=== PATIENT | female | born 1950 | race Caucasian/White ===

== ENCOUNTER → 2024-01-02 10:09 | Outpatient (REF) | payer MEDICARE, SELFPAY | LOC: DHCBC MAIN 10:09 | PROVIDERS: ATTENDING PHYSICIAN Internal Medicine Cardiovascular Disease; FAMILY PHYSICIAN Internal Medicine | DX: I35.0 Nonrheumatic aortic (valve) stenosis (principal) | CPT/HCPCS: 93306 ==

== ENCOUNTER 2024-01-18 10:45 | Day surgery (SDC) | payer MEDICARE, SELFPAY ==
[2024-01-18] VITALS (13 sets, daily range): BP systolic 71–138; BP diastolic 34–95; BMI 22.8
[2024-01-18] MEDS: NSS 170 ML IV (11:22)
[2024-01-18] MEDS: LOW STRENGTH ASPIRIN 81 MG PO (11:30)
--- NOTE | 2024-01-18 14:02 | ITS.CL.CATH ---
Glass Vial Filler - Catheterization
Cardiac Catheterization
Procedure Report:
CARDIAC CATHETERIZATION REPORT
Date of Procedure: 01/18/2024
Referring: Doris Ross M.D.
Indication: Severe aortic valve stenosis.
PROCEDURE:
1. Right heart catheterization.
2. Left heart catheterization.
3. Coronary angiography.
ACCESS:
6 [place] right radial artery.
5 [place] right antecubital vein.
CATHETERS:
1. 5 [place] balloon wedge.
2. 5 [place] JL 3.5.
3. 5 [place] JR4.
HEMODYNAMIC DATA
Weight (kg): 56.6
AO (s/d/x mmHg): 140/71/99
LV (s/x mmHg): Not obtained.
PCWP (a/v/x mmHg): 24/
PA (s/d/x mmHg): 46//29
RV (s/x mmHg): 46/12
RA (a/v/x mmHg): 18/16/13
SVC SvO2 (%): 79.8
PA SvO2 (%): 77.5
SaO2 (%): 93.5
Hbg (g/dL): 12.8
CO (L/min): 6.22
CI (L/min/m2): 3.98
TPG (mmHg): 9
PVR ([place] Units): 1.45
SVR (dynes*seconds*cm^-5): 1106
AVO2 Diff (Volume %): 2.79
AV gradient (x, mmHg): Not obtained.
AV area (cm2): Not obtained.
LEFT VENTRICULOGRAPHY: Not performed.
CORONARY ANGIOGRAPHY
Dominance: Right.
Left Main: Normal size, bifurcating vessel. There is no coronary artery disease.
LAD: Normal size vessel giving rise to 1 significant diagonal. There is no coronary artery disease.
Ramus: Congenitally absent.
Circumflex: Normal size vessel that is essentially a single obtuse marginal supplying the majority of the lateral wall. There is no coronary artery disease.
RCA: Large size, dominant vessel with an anterior takeoff and a significant posterolateral arcade. There is at least moderate tortuosity. There is no coronary artery disease
INTERVENTIONS
None.
Closure Device: Vascular band for the right radial artery, manual pressure for the right antecubital vein.
Radiation dose (mGy): 117.79
DAP (cm2.Gy): 7.9700
Fluoroscopy time (minutes): 3.6
Sedation time (minutes): 14
CONCLUSIONS:
1. Right dominant circulation with moderate tortuosity in the right coronary system but no coronary artery disease. The RCA has a high, anterior takeoff.
2. Moderately elevated filling pressures (PCWP = 20 mmHg at 56.6 kg).
3. Severe aortic valve stenosis by echocardiography.
4. Mild postcapillary pulmonary hypertension, WHO group 2.
RECOMMENDATIONS:
1. Expectant management after cardiac catheterization via right radial and antecubital approach.
2. Limited weight bearing on the right wrist for one week.
3. Initiate TAVR workup.
Copy to: Doris Ross M.D., YOHANA Rebollar
[place] Amaya, , FACC, FACP
[2024-01-18] MEDS: NSS 1000 IV (14:28)
--- NOTE | 2024-01-18 14:58 | CONSULT.STRU ---
Consultation
-
Date/Time Consultation Requested: 01/18/2024
Date/Time Consultation Performed: 01/18/2024
Requesting Provider: Gnei Keller
Performing Provider: YOHANA Davis
Reason for Consultation: /TAVR
Patient History
Physicians
Family Physician: YOHANA Bravo
Outpatient Picked Edge Sewing Machine Operator: Doris Ross MD
Primary Picked Edge Sewing Machine Operator: Doris Ross MD
History of Present Illness
Ms. Quintana is a very pleasant 73 yof that presents with severe symptomatic aortic stenosis associated with SOLER. She states she has noticed her SOLER while vacuuming progressively worse over the last several months. 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 Her echocardiogram from 01/02/2024 is notable for: EF 55-60%, AV P/M 94/57, MART 0.5, DI 0.2, mild AI, mild MR, trace TR, PAP 25. Discussed the pathophysiology and treatment options of including
SAVR and TAVR. Explained the evaluation process comprising of CT scan, CT surgical consult, dental clearance, and a heart team discussion. Prescriptions and appointments given to patient and son. Allowed for and answered questions at bedside.
Past Medical History
Past Medical History: Hypercholesterolemia, Valvular Disease (aortic stenosis) and Other (hyperlipidemia, osteoporosis, kidney stones, migraines, depression, anxiety)
Past Surgical History
Past Surgical History: Tonsilectomy and Other (lithotripsy, bilateral tubal ligation)
Dental History
[facility] dentistry. [facility] will fax dental clearance form
Family History
Mother: Cause of (cancer, CAD)
Father: Cause of (CAD)
Family Medical History: CAD and Diabetes
Social History
Alcohol: Occasional
Drug: None
Tobacco: Former Smoker
Living: Alone
Employment: Employed
Allergies
Allergy/AdvReac Type Severity Reaction Status Date / Time
Sulfa (Sulfonamide Allergy Rash Verified 12/24/22 08:12
Antibiotics)
Home Medications
�Medication �Instructions �Recorded �Confirmed �Type
aspirin 81 mg tablet,delayed 81 mg PO DAILY 03/07/10 12/24/22 History
release
multivitamin 1 ea PO DAILY 03/07/10 01/18/24 History
simvastatin 20 mg tablet 20 mg PO QPM 03/07/10 01/18/24 History
rizatriptan 5 mg tablet 5 mg PO DAILY 08/26/16 01/18/24 History
Azo 1 tab PO DAILY PRN urinary symptoms 12/24/22 01/18/24 History
Chanca Kimberly 1,600 mg PO DAILY 12/24/22 01/18/24 History
Vitamin D3 1 tab PO DAILY 12/24/22 01/18/24 History
d-mannose 500 mg capsule 1,300 mg PO DAILY 12/24/22 01/18/24 History
omeprazole 20 mg capsule,delayed 20 mg PO DAILY 12/24/22 01/18/24 History
release
pseudoephedrine-ibuprofen 30 1 tab PO QID PRN cold 12/24/22 01/18/24 History
mg-200 mg tablet (Advil Cold and
Sinus)
vitamin B12 0.5 mg-folic acid 1 mg 1 tab PO DAILY 12/24/22 01/18/24 History
tablet
acetaminophen 325 mg tablet 325 mg PO DAILY PRN pain 01/18/24 01/18/24 History
(Tylenol)
albuterol sulfate 90 mcg/actuation 1 puff inhalation ONCE 01/18/24 01/18/24 History
aerosol inhaler
fluticasone propionate 115 2 puff inhalation Q12H 01/18/24 01/18/24 History
mcg-salmeterol 21 mcg/actuation
HFA inhaler (Advair HFA)
STS%
STS %: 3.24
Review of Systems
-
History Source: Patient
General: Reports No Symptoms
HEENT: Reports No Symptoms
Respiratory: Reports SOLER
Cardiac: Reports No Symptoms
Abdomen/GI: Reports No Symptoms
: Reports No Symptoms
Musculoskeletal: Reports No Symptoms
Skin: Reports No Symptoms
Neurological: Reports No Symptoms
Vascular: Reports No Symptoms
Physical Exam
Vital Signs
Temp 98.0 F 01/18/24 12:15
Temp route: Oral 01/18/24 12:15
Pulse 76 01/18/24 14:15
Resp Rate 19 01/18/24 14:15
Blood pressure 123/70 01/18/24 14:14
Blood pressure extremity used: Right upper arm 01/18/24 11:13
Position: Lying 01/18/24 11:13
MAP (cuff-Brittany Monitor) 80 01/18/24 14:14
SaO2 97 01/18/24 14:18
Can the patient verbally communicate their pain? Yes 01/18/24 14:18
Actual Weight 56.6 kg 01/18/24 11:12
Body Mass Index (BMI) 22.8 01/18/24 11:12
Labs
01/10/2024
HH: 12.7/39.4
Plt: 198K
Bun/Cr: 20/0.68
GFR>60
Diagnostic Studies
Clinical Summary
Planned Surgery: Isolated AVR, Elective, First cardiovascular surgery
Demographics: 73 year old, White, female, 57kg, 155cm, BMI: 23.7 kg/m�
Insurance/Payor: Medicare
Lab Values: Creatinine: 0.68 mg/dL, Hematocrit: 39.4%, WBC Count: 12.2 10�/�L, Platelet Count: 904618 cells/�L
Substance Abuse: Former smoker
Risk Factors / Comorbidities: Family Hx of CAD
Cardiac Status: Chronic heart failure, NYHA Class II, Ejection Fraction = 55%
Coronary Artery Disease: No coronary symptoms
Valve Disease: Aortic Stenosis, Mild AR, Trivial/Trace MR, Trivial/Trace TR
Echocardiogram 01/02/2024:
CONCLUSIONS
Normal left ventricular size and systolic function.
LV ejection fraction is 55-60% .
Severe aortic stenosis.
Mild aortic regurgitation.
Aortic Valve
Thickened aortic valve with restricted leaflet motion. Severe aortic stenosis.
Apical views peak gradient 94 mean gradient 57 mmHg. Using patient off the
peak gradient across the valve is 122 mmHg with a mean of 72 mmHg. Using a LVOT
diameter of 2.0 cm, the MART is 0.5 cm sq. dimensionless index is 0.2. mild
aortic regurgitation.
Cardiac Catheterization 01/18/2024
CONCLUSIONS:
1. Right dominant circulation with moderate tortuosity in the right coronary system but no coronary artery disease. The RCA has a high, anterior takeoff.
2. Moderately elevated filling pressures (PCWP = 20 mmHg at 56.6 kg).
3. Severe aortic valve stenosis by echocardiography.
4. Mild postcapillary pulmonary hypertension, WHO group 2.
RECOMMENDATIONS:
1. Expectant management after cardiac catheterization via right radial and antecubital approach.
2. Limited weight bearing on the right wrist for one week.
3. Initiate TAVR workup.
Exam
General: Well Developed, Well Nourished, No Apparent Distress and Comfortable
HEENT: Normocephalic and Moist Mucous Membranes
Neck: Trachea Midline
Respiratory: Clear
Cardiac: Regular Rhythm and Murmur (IV/ RUIZ)
GI: Soft, Non Tender and Non Distended
Rectal: Deferred by Provider
Skin: Warm and Dry
Neuro: Awake, Alert and Oriented
Psych: Calm
Assessment / Plan
-
Aortic Stenosis
Continue TAVR evaluation
Trend creatinine after contrast (Rx given--[facility])
TAVR CT scan (01/30)
CT surgical consult (TT 01/29)
Frailty testing and KCCQ12 at consult
continue aspirin
Heart team discussion
Data Reviewed
-
Program Management Specialist: Report Reviewed by me and Discussed with Physician
Echo: Report Reviewed by me and Discussed with Physician
Labs: Labs Reviewed by me
Old Records: Reviewed (Dr. Ross's OV)
Total Time Spent with Patient (in minutes): 45
[2024-01-18] MEDS: TYLENOL 650 MG PO (15:10)
== END 2024-01-18 17:13 | disposition home or self-care (01) ==
LOC: CATH 10:45
PROVIDERS: ATTENDING PHYSICIAN Internal Medicine Cardiovascular Disease; FAMILY PHYSICIAN Internal Medicine; OTHER PHYSICIAN Internal Medicine Cardiovascular Disease
DX: I35.0 Nonrheumatic aortic (valve) stenosis (principal); I27.22 Pulmonary hypertension due to left heart disease; E78.00 Pure hypercholesterolemia, unspecified; E78.5 Hyperlipidemia, unspecified; Z87.891 Personal history of nicotine dependence
CPT/HCPCS: 93451; 93456; C1769; C1894; Q9967

== ENCOUNTER → 2024-01-25 09:54 | Outpatient (REF) | payer MEDICARE, SELFPAY ==
[2024-01-25 10:50] LABS: Blood Urea Nitrogen 22 mg/dl (7-17); Calcium 9.8 mg/dl (8.4-10.2); Carbon Dioxide 30 mmol/L (22-30); Chloride 103 mmol/L (98-107); Glucose 102 mg/dl (70-99); Potassium 4.8 mmol/L (3.5-5.1); Sodium 140 mmol/L (135-145); eGFR > 60.00
== END ==
LOC: RAD 09:54
PROVIDERS: ATTENDING PHYSICIAN Nurse Practitioner Acute Care; FAMILY PHYSICIAN Internal Medicine
DX: I35.0 Nonrheumatic aortic (valve) stenosis (principal)
CPT/HCPCS: 36415; 74174; 75572; 80048; Q9967

== ENCOUNTER 2024-02-28 04:54 | Inpatient (IN) | payer MEDICARE, SELFPAY ==
[2024-02-21 08:55] VITALS: BMI 24.4
[2024-02-21 09:59] LABS: APTT 25.4 Sec (23.4-35.0); INR 0.98; PT 12.8 Sec (11.4-14.6)
[2024-02-21 10:00] LABS: % Basophils 0.4 % (0-2); % Eosinophils 1.4 % (0-6); % Immature Granulocytes 0.3 % (0-0.5); % Lymphocytes 59.8 % (20.5-51.1); % Monocytes 6.3 % (1.7-9.3); % Neutrophils 31.8 % (42.2-75.2); Absolute Basophils 0.1 10^3/uL (0-0.2); Absolute Eosinophils 0.2 10^3/uL (0-0.7); Absolute Lymphocytes 8.5 10^3/uL (1.2-3.4); Absolute Monocytes 0.9 10^3/uL (0.1-0.6); Absolute Neutrophils 4.5 10^3/uL (1.4-6.5); Hematocrit 42.9 % (37.0-47.0); Hemoglobin 13.9 g/dL (12.0-16.0); Mean Corp Hgb Conc. 32.4 g/dL (33.0-37.0); Mean Corpuscular Volume 89.6 fL (81.0-99.0); Mean Platelet Volume 10.7 fL (7.4-10.4); Nucleated Red Blood Cells % 0 %; Platelet Count 194 10^3/uL (130-400); Red Blood Cell Count 4.79 10^6/uL (4.20-5.40); Red Cell Dist. Width 12.8 % (11.5-14.5); White Blood Cell Count 14.2 10^3/uL (4.8-10.8)
[2024-02-21 10:13] LABS: ALT (SGPT) 30 U/L (0-35); AST (SGOT) 36 U/L (14-36); Albumin 5.2 g/dl (3.5-5.0); Alkaline Phosphatase 96 U/L (38-126); Blood Urea Nitrogen 23 mg/dl (7-17); Calcium 9.9 mg/dl (8.4-10.2); Carbon Dioxide 29 mmol/L (22-30); Chloride 101 mmol/L (98-107); Direct Bilirubin 0.3 mg/dl (0.0-0.4); Estimated Creatinine Clearance 64 ml/min; Glucose 100 mg/dl (70-99); Potassium 4.8 mmol/L (3.5-5.1); Sodium 139 mmol/L (135-145); Total Bilirubin 1.1 mg/dl (0.2-1.3); eGFR > 60.00
[2024-02-21 10:15] LABS: Urine Albumin Negative (Neg - Trace); Urine Bilirubin Negative (Negative); Urine Character Clear (Clear); Urine Color Yellow; Urine Glucose Negative (Negative); Urine Ketone Negative (Negative); Urine Leukocyte Negative (Negative); Urine Nitrite Negative (Negative); Urine Occult Blood Trace (Negative); Urine Specific Gravity 1.005 (<1.030); Urine Urobilinogen Negative (Neg - 1+)
[2024-02-21 10:23] LABS: Urine Squamous Cell 0-2 /LPF (Few)
[2024-02-21 10:24] LABS: Urine Bacteria Few (Negative); Urine Red Blood Cell 0-2 /HPF (0-2); Urine White Cell 0-2 /HPF (0-5)
--- NOTE | 2024-02-21 11:44 | CM ---
spoke to pt in PAT's, we discussed preop AVR teaching including driving and lifting restrictions. she is prev indep, lives alone in an apt on one floor no steps to enter. she denies any dme's. she still works 32 hrs a week at [employer]. she has the
cardiac educ book soap and instructions. she is agreeable to a f/u visit from the [facility] care nurse after dc. her son is nearby and can stay with her for a night or two after dc. cmrole explained and all questions answered. plan is for AVR
02/27, cm to follow.
[2024-02-21 11:54] LABS: Glycohemoglobin (HgbA1c) 6.2 % (4.0-5.6)
[2024-02-28] VITALS (16 sets, daily range): BP systolic 73–118; BP diastolic 40–69; BMI 24.0
[2024-02-28] MEDS: PROTONIX 40 MG PO (05:19)
[2024-02-28] MEDS: MAGNESIUM OXIDE 500 MG PO (05:19)
[2024-02-28] MEDS: LOPRESSOR 25 MG PO (05:19)
[2024-02-28] MEDS: BACTROBAN 2% OINTMENT 1 APPLIC NASAL ×2 (05:22→21:15)
[2024-02-28] MEDS: TRANSDERM-SCOP 1 PATCH TRANSDERM (06:28)
--- NOTE | 2024-02-28 06:28 | W.CVOR.SURPR ---
CVOR Surgeon Immed Pre Op
-
I have examined this patient prior to performance of the scheduled procedure.
The patient's condition is unchanged from the time of the dictated/written History and
Physical and the patient is able to undergo the scheduled procedure.
SAVR +/- Root enlargement
[2024-02-28 07:19] LABS: ACT+ - POC 107 Seconds (82-134)
[2024-02-28 07:23] LABS: B.E. - POC 0.6 mmol/L; Glucose - POC 125 mg/dl (65-99); HCO3 - POC 26 mmol/L (21-29); Hematocrit - POC 37 % PCV (37-47); Hemodilution- POC No; Hemoglobin Calculated - POC 12.7; Ionized Calcium - POC 1.25 mmol/L (1.12-1.27); O2 Saturation %Calculated-POC 99.9 5 (92-96); PCO2 - POC 46 mmHg (35-45); PO2 - POC 295 mmHg (80-100); POC Comment PRE; Potassium - POC 4.1 mmol/L (3.6-5.0); Sodium - POC 142 mmol/L (135-145); pH - POC 7.36 (7.35-7.45)
[2024-02-28 07:27] LABS: Urine Albumin Negative (Neg - Trace); Urine Bilirubin Negative (Negative); Urine Character Clear (Clear); Urine Color Yellow; Urine Glucose Negative (Negative); Urine Ketone Negative (Negative); Urine Leukocyte Negative (Negative); Urine Nitrite Negative (Negative); Urine Occult Blood Negative (Negative); Urine Urobilinogen Negative (Neg - 1+)
[2024-02-28 08:17] LABS: ACT+ - POC 572 Seconds (82-134)
[2024-02-28 08:50] LABS: B.E. - POC 6.4 mmol/L; Glucose - POC 164 mg/dl (65-99); HCO3 - POC 29 mmol/L (21-29); Hematocrit - POC 26 % PCV (37-47); Hemodilution- POC Yes; Hemoglobin Calculated - POC 8.7; Ionized Calcium - POC 0.91 mmol/L (1.12-1.27); PCO2 - POC 31 mmHg (35-45); PO2 - POC 488 mmHg (80-100); POC Comment CPB; Potassium - POC 5.2 mmol/L (3.6-5.0); Sodium - POC 140 mmol/L (135-145); pH - POC 7.58 (7.35-7.45)
[2024-02-28 08:52] LABS: ACT+ - POC 540 Seconds (82-134)
--- NOTE | 2024-02-28 09:03 | CM ---
Reviewed chart. Mrs. Quintana is in the operating room today. Prior to admission she resides alone in an apartment without any steps to enter. She has a first floor set-up. Prior to admission she was independent with ambulation and adls. She
does not have any DME in the home. She still works outside the home. Her son maybe able to stay with her one to two night when she goes home. Medical work-up in progress. The discharge plan is to return home with her son support and a home visit
by the Cardiothoracic Transitional Care Nurse when medically stable.
[2024-02-28 09:27] LABS: B.E. - POC 3.7 mmol/L; Glucose - POC 240 mg/dl (65-99); HCO3 - POC 27 mmol/L (21-29); Hematocrit - POC 30 % PCV (37-47); Hemodilution- POC Yes; Hemoglobin Calculated - POC 10.2; Ionized Calcium - POC 1.04 mmol/L (1.12-1.27); O2 Saturation %Calculated-POC 99.8 5 (92-96); PCO2 - POC 37 mmHg (35-45); PO2 - POC 200 mmHg (80-100); POC Comment CPB; Sodium - POC 142 mmol/L (135-145); pH - POC 7.48 (7.35-7.45)
[2024-02-28 09:29] LABS: ACT+ - POC 489 Seconds (82-134)
[2024-02-28 09:59] LABS: ACT+ - POC 487 Seconds (82-134)
[2024-02-28 10:01] LABS: B.E. - POC 1.2 mmol/L; Glucose - POC 171 mg/dl (65-99); HCO3 - POC 26 mmol/L (21-29); Hematocrit - POC 30 % PCV (37-47); Hemodilution- POC Yes; Hemoglobin Calculated - POC 10.2; Ionized Calcium - POC 1.12 mmol/L (1.12-1.27); O2 Saturation %Calculated-POC 99.6 5 (92-96); PCO2 - POC 39 mmHg (35-45); PO2 - POC 181 mmHg (80-100); POC Comment WARM; Potassium - POC 3.7 mmol/L (3.6-5.0); Sodium - POC 146 mmol/L (135-145); pH - POC 7.43 (7.35-7.45)
[2024-02-28] MEDS: ANCEF 10 IV ×2 (10:30)
[2024-02-28 10:44] LABS: ACT+ - POC 115 Seconds (82-134)
[2024-02-28 10:50] LABS: B.E. - POC -2.1 mmol/L; Glucose - POC 83 mg/dl (65-99); HCO3 - POC 24 mmol/L (21-29); Hematocrit - POC 30 % PCV (37-47); Hemodilution- POC Yes; Hemoglobin Calculated - POC 10.3; Ionized Calcium - POC 1.58 mmol/L (1.12-1.27); PCO2 - POC 45 mmHg (35-45); PO2 - POC 552 mmHg (80-100); POC Comment POST; Potassium - POC 3.2 mmol/L (3.6-5.0); Sodium - POC 150 mmol/L (135-145); pH - POC 7.34 (7.35-7.45)
[2024-02-28 11:09] LABS: B.E. - POC -3.1 mmol/L; Glucose - POC 81 mg/dl (65-99); HCO3 - POC 24 mmol/L (21-29); Hematocrit - POC 30 % PCV (37-47); Hemodilution- POC Yes; Hemoglobin Calculated - POC 10.3; Ionized Calcium - POC 1.45 mmol/L (1.12-1.27); PCO2 - POC 49 mmHg (35-45); PO2 - POC 508 mmHg (80-100); POC Comment POST; Potassium - POC 3.1 mmol/L (3.6-5.0); Sodium - POC 149 mmol/L (135-145); pH - POC 7.29 (7.35-7.45)
--- NOTE | 2024-02-28 11:15 | CON.INTV ---
Consultation
Consultation Request
Date/Time Consultation Requested: 02-28-24
Date/Time Consultation Performed: 02-28-24
Requesting Provider: Dr Goetz
Performing Provider: Dr Thompson
Reason for Consultation: s/p AV surgery MV
Medical History
-
Chief Complaint: s/p AV surgery, MV
History of Present Illness:
Mrs Rashida Quintana is a 73/W adm 02-27 for plan surgery for .
Seen at office by Dr Goetz for progressive with MART 0.5 cm2 and worsening functional status. [facility] showed no significant CAD
Seen at [facility], s/p surgical AV replacement with Ao root enlargement and aortoplasty using a bovine pericardial patch [23 mm bioprosthesis]. [facility], sedated, comfortable
Past Medical History
Past Medical History: Other (see A&P for PMH/PSH)
Social History
Tobacco: Former Smoker
Alcohol: Occasional
Personal:
Living: Alone
Employment: Employed
Family History
Family History: CAD (F: ), Cancer (M: CLL) and Diabetes (M: )
Allergies / Home Medications
Allergies
Allergy/AdvReac Type Severity Reaction Status Date / Time
Sulfa (Sulfonamide Allergy Rash Verified 02/20/24 13:00
Antibiotics)
Home Medications
�Medication �Instructions �Recorded �Confirmed �Last Taken �Type
aspirin 81 mg tablet,delayed 81 mg PO QPM 03/07/10 02/28/24 02/27/24 12:00 History
release
multivitamin 1 ea PO QPM 03/07/10 02/28/24 02/20/24 History
simvastatin 20 mg tablet 20 mg PO QPM 03/07/10 02/28/24 02/20/24 08:00 History
rizatriptan 5 mg tablet 5 mg PO PRN PRN MIGRAINES 08/26/16 02/28/24 02/20/24 History
Chanca Kimberly 1,600 mg PO QPM 12/24/22 02/28/24 01/28/24 History
d-mannose 500 mg capsule 1,300 mg PO QPM 12/24/22 02/28/24 01/28/24 History
pseudoephedrine-ibuprofen 30 1 tab PO QID PRN cold 12/24/22 02/28/24 01/11/24 08:00 History
mg-200 mg tablet (Advil Cold and
Sinus)
vitamin B12 0.5 mg-folic acid 1 mg 1 tab PO QPM 12/24/22 02/28/24 02/20/24 08:00 History
tablet
acetaminophen 325 mg tablet 325 mg PO DAILY PRN pain 01/18/24 02/28/24 02/27/24 05:00 History
(Tylenol)
albuterol sulfate 90 mcg/actuation 1 puff inhalation PRN PRN SOB 01/18/24 02/28/24 02/27/24 12:00 History
aerosol inhaler
fluticasone propionate 115 2 puff inhalation Q12H 01/18/24 02/28/24 01/28/24 History
mcg-salmeterol 21 mcg/actuation
HFA inhaler (Advair HFA)
cholecalciferol (vitamin D3) 25 25 mcg PO QPM 02/20/24 02/28/24 02/20/24 History
mcg (1,000 unit) tablet (Vitamin
D3)
escitalopram oxalate 10 mg tablet 15 mg PO DAILY 02/20/24 02/28/24 02/27/24 08:00 History
(Lexapro)
famotidine 40 mg tablet (Pepcid) 40 mg PO QPM 02/20/24 02/28/24 02/27/24 12:00 History
lorazepam 0.5 mg tablet 0.5 mg PO DAILY PRN SLEEP/ANXIETY 02/20/24 02/28/24 09/29/23 08:00 History
mecobalamin (vitamin B12) 1,000 500 mcg PO QPM 02/20/24 02/28/24 02/20/24 History
mcg chewable tablet (B12 Active)
pumpkin seed extract-soy germ 300 1 cap PO PRN PRN URINARY SYMPTOMS 02/20/24 02/28/24 01/28/24 History
mg capsule (Azo Bladder Control)
Review of Systems
-
Unable to Obtain full review of systems at this time due to: Patient Intubation
Vitals / Labs / Diagnostic Testing
Diagnostic Testing:
Physical Exam
-
HEENT: Normocephalic, Moist Mucous Membranes and Other (RADHA)
Cardiovascular: Regular Rhythm and Peripheral Edema (n)
Respiratory: Clear, Non-Labored Respirations and Other (chest and mediastinal tubes)
GI: Soft and Non Distended
Neurology: Other (sedated)
Skin: Warm
General: Respiratory Distress (n)
Assessment
-
Assessment:
Mrs Rashida Quintana is a 73/W adm 02-27 for plan surgery for . Seen at office by Dr Goetz for progressive with MART 0.5 cm2 and worsening functional status. [facility] showed no significant CAD
Impression:
Severe
S/p surgical AV replacement with Ao root enlargement and aortoplasty using a bovine pericardial patch [23 mm bioprosthesis]
Conditions POLYSOMNOGRAPHIC TECH:
([facility] with no CAD January 2024)
HLD
OP
Vit D deficiency
OA
Nephrolithiasis, s/p lithotripsy x3 in 2004, utereroscopy stone extraction Aug 2016
Migraine
LBP
Depression, anxiety, panic disorder
L foot bone spur, plantar fasciitis,
Tonsillectomy
Bilateral tubal ligation
Former smoker
Plan:
Ventilator settings reviewed:
SIMV: [id number] (POx 97%)
FiO2 will be weaned
Minute ventilation will be adjusted
Arterial blood gases will be monitored
Postop portable CXR: no infiltrates or free air. ETT. RIJ SGC. Sternotomy wiring. Chest/med tubes
Spontaneous breathing trial will be attempted with hopeful extubation after anesthesia/sedation wear off
Pulmonary artery catheter parameters will be followed
Pressors/antihypertensive/inotropes/diuretics will be provided as needed
Monitor chest tube output
Monitor hemoglobin
Monitor platelet count and coags
Transfuse blood product if needed
CT surgery following chest tubes
Monitor blood sugar
Insulin drip per protocol
Aspiration precautions
VAP prevention protocol
DVT prophylaxis
Early nutrition
Early mobilization
Critical care time: 35 min
D/w CTSx RN
[2024-02-28] MEDS: NOVOLOG FLEXPEN SC ×2 (11:24→15:12)
[2024-02-28] MEDS: NEURONTIN PO ×2 (11:24→15:11)
[2024-02-28] MEDS: NSS 500 IV (11:24)
[2024-02-28] MEDS: LEXAPRO PO (11:24)
--- NOTE | 2024-02-28 11:24 | W.PN.CT.SURG ---
CT Surgery Operative Note
-
CARDIAC SURGERY OPERATIVE REPORT
Preoperative Diagnosis: Aortic valve stenosis with low coronaries and small root, symptomatic
Postoperative Diagnosis: Same
Procedure(s) Performed:
1. Standard sternotomy with aortic and right atrial cannulation
2. Surgical aortic valve replacement with aortic root enlargement and aortoplasty using a bovine pericardial patch [23 mm bioprosthesis]
3. Transesophageal echocardiography
4. Placement of temporary ventricular pacing wire
Date of Surgery: 02/28/2024
Comorbidities:
1. Severe/critical aortic valve stenosis, symptomatic
2. Hypertension
3. Hyperlipidemia
4. Osteoporosis
5. Migraines
6. Anxiety/depression
7. High risk anatomy for TAVR
8. Chronic diastolic dysfunction and mildly ventricular hypertrophy
Attending Surgeon: Roc Goetz MD, MS
Assistants: Mag Lord PA-C (present and necessary to first aid officer, retraction, suction, exposure, suture management, and wound closure under my direction)
Anesthesiology: Jamil Barbour MD and Jalyn Rey CRNA
Scrub and Circulating RNs: Jose Fan RN, Claire Escobar RN
Deli Cook: Nish Duran CCP
Anesthesia: GETA
EBL: per perfusion records
Products: None
CPB Time: 122 minutes
Aortic Cross Clamp Time: 103 minutes
Indication(s) for Procedures: This is a 73-year-old female with severe aortic valve stenosis bordering critical. She was symptomatic in the form of shortness of breath and fatigue that are worsening over the last year. She was brought up her
multidisciplinary structural heart meeting and evaluated by both interventional cardiology and cardiac surgery. Given her low coronary heights and small root, lifetime management consensus is to pursue surgical aortic valve replacement with aortic
root enlargement to facilitate a future transcatheter valve. Her STS risk was discussed and the risk and benefits of surgery were reviewed. She agreed and opted to move forward after accepting the risks.
Aortic Valve Description: Heavily calcified at the free margin and body of the leaflets particularly towards the noncoronary cusp. The annular insertion points were relatively free of calcium. Trileaflet valve. Left and right coronary arteries in
the normal anatomic position although slightly low as shown on the CT TAVR protocol study.
Findings: Her left ventricular ejection fraction preoperatively was normal at 60 to 65% with no regional wall motion abnormalities. She had slight left atrial hypertrophy with evidence of diastolic dysfunction. Her kake aortic root was quite
small as was her STJ and kake aorta. Her kake aortic valve was explanted and calcium was debrided. The root size to approximately a 19 mm surgical aortic valve. Aortic root enlargement as well as sinus enlargement with aortoplasty was
performed using a large bovine pericardial patch that had a width of approximately 3 cm. I cut down towards the left noncoronary commissure onto the aorto mitral curtain and then continued my incision left forward and rightward toward the
trigone's. The patch was then sewn into place using 4-0 Prolene in a running fashion with multiple reinforcement stitches. Once the patch was sewn up to the level of the STJ, I sized the valve again to fit and approximate 23 mm surgical aortic
valve prosthesis. A total of 16 (10 nonpledgeted and 6 pledgeted) 2 Ethibond sutures were placed along the kake annulus onto the bovine pericardial patch. The valve was parachuted into place and secured with core knots. I then ran the patch up
the kake aorta anteriorly towards the left apex. At the conclusion of the case, there was no paravalvular leak, normal excursion of all the leaflets on the valve. With a mean gradient of approximately 11mmHg while the cardiac index was 3.0. She
did not require any inotropic support, she was sinus bradycardia did not require pacing, did not require any blood products. LV function following aortic valve replacement was normal with an EF of approximately 65%, slight hyperdynamic, no regional
wall motion abnormalities.
Specimen(s): Aortic valve.
Prosthesis:
1. 23 mm [place] Inspiris Resilia surgical aortic valve, serial #[id number]
2. Bovine pericardial patch, serial number [id number]
3. Small dab of BioGlue along the suture line and Floseal for hemostatic agent
Description of Procedure: The patient was taken to the operating room. Their identity and procedure to be performed were verified and they were positioned supine on the operating table. Induction via general anesthesia with endotracheal intubation
was performed and central venous access and arterial monitoring were inserted. A preoperative transesophageal echocardiogram was performed to assess cardiac function and valvular function. The patient was then prepped and draped from chin to feet in
a sterile fashion. A preoperative time-out was performed with all members of the team present. A midline chest incision was performed along with median sternotomy. The innominate vein was isolated. Full heparinization was given (a total of 40,000
units). We created a pericardial well. The aortic cannulation site was chosen where it was soft, pliable, and free of calcium. Cannulation was performed with an arterial cannula in the ascending aorta and a triple-stage venous cannula through the
right atrial appendage. The arterial cannula line had an appropriate bounce and correlating pressures with test dosing. Next, a root vent/antegrade cannula was inserted into the ascending aorta. The ACT was confirmed to be over 400 and retrograde
autologous priming was performed before commencing cardiopulmonary bypass. The pulmonary artery was away from the aorta to facilitate a clamp site and aortotomy. A left ventricular vent was placed at the right superior pulmonary vein and
secured. The aortic cross-clamp was placed after decreasing the flow on the bypass and mean arterial pressure. A total of 1.2L initial dose of antegrade Del-Nido cardioplegia solution was given and planned for re-dosing every 75 minutes as
necessary. There was rapid electro-mechanical arrest of the heart at 280 cc of cardioplegia. The left ventricle was observed for distention on echocardiogram and manual palpation. Cold slush was placed into a sponge and topically on the RV while we
systemically cooled to 34 degrees centigrade.
Carbon dioxide was used to flood the field. We manually identified the location of the right coronary take off. An aortotomy was made approximately 2cm above the sinotubular junction and carried obliquely down towards the left noncoronary
commissure. The location of both left and right coronary vessels were visualized in the root.The leaflets were excised and sent for pathological assessment. The annulus was debrided of any calcium being mindful of the annulus and membranous septum.
The root and left ventricular outflow tract were thoroughly irrigated to remove any debris. The kake aortic annulus measured to approximately 19 mm. The STJ is also quite small making it difficult to deliver any sizer into place. At this point
with plans for aortic root enlargement I cut down on the left�noncoronary commissure and then extended my incision left and rightward toward the trigone's underneath the aortic annulus. The aortic root enlarged in size and measured to approximate 2
cm. I then fashioned a 3 cm wide pericardial patch and sewed the patch into place using 4-0 Prolene towards each trigone. I carried the patch up towards the level of the kake sinotubular junction. A new valve sizer was then placed and
accommodated approximate 23 mm bioprosthesis. I marked on the patch where the David noncoronary sinus and annulus will be. A total of 10 non-pledgeted and 6 pledgeted (placed outside to end on the patch and transition ) 2-0 ethibond inverted annular
sutures were placed [id number] circumferentially. These were brought through the sewing cuff of the prosthetic valve which as then parachuted into place. The left and right coronary ostia were visualized and were unobstructed by the valve. A
Cor-Knot device was used to secure the annular sutures. The valve was inspected and was well seated. I then carried the 4-0 Prolene up along the aorta and beveled the patch accordingly. This effectively enlarge the aortic root sinuses and root in
order to accommodate a larger valve to match the LVOT diameter of 1.9 to 2.0 cm. De-airing maneuvers were performed and temporary bipolar ventricular pacing wires were placed on the base of the right ventricle. The patient was placed in a
Trendelenburg position and flows on bypass were lowered. The aortic cross clamp was removed and flows were slowly brought back up. The aortotomy appeared hemostatic. Transesophageal echocardiography revealed no paravalvular leak and appropriate
prosthetic function. Once de-airing was satisfactory, the left ventricular and root vents were removed. After verifying acceptable parameters, we initiated weaning from cardiopulmonary bypass. Once we were off cardiopulmonary bypass, the venous
cannula was clamped and removed. A test dose of protamine was administered and the patient was monitored for any adverse reaction before resuming protamine. Once half of the protamine dose was delivered, pump suckers were turned off and the systolic
blood pressure was lowered for aortic decannulation. The aortic cannula was removed and pursestrings were tied down. All cannulation sites were oversewn with a 4-0 prolene. The aortotomy suture lines were inspected and hemostasis was confirmed.
Mediastinal hemostasis was obtained. Two 24Fr Sonny drains were placed within the pericardium. The sternum was approximated with 4 #7 single and 3 #8 double stainless steel wires. Fascia was approximated with #1 vicryl suture. The subcutaneous,
dermis and epidermis were closed in layers in a running fashion. The skin wound was cleansed and dressed.
All instrument, sponge, and needle counts were confirmed to be correct x 2 at the end of the operation. The patient was transferred to the cardiac intensive care unit in critical but stable condition.
I, Dr. Roc Goetz, was present, scrubbed for, and performed all critical elements of this procedure.
Roc Goetz MD, MS
Cardiothoracic Surgeon
[facility]
This operative dictation was created using the Copyright Agent dictation system. Please excuse any grammatical, typographical, or 'sound alike' errors
[2024-02-28 11:34] LABS: Glucose - Point of Care 113 mg/dl (70-99)
[2024-02-28 11:42] LABS: Hematocrit 31.5 % (37.0-47.0); Hemoglobin 10.4 g/dL (12.0-16.0); Platelet Count 110 10^3/uL (130-400)
[2024-02-28 11:43] LABS: B.E. -1.6 mmol/L; HCO3 24.3 mmol/L (21-28); Ionized Calcium 1.33 mMOL/L (1.15-1.33); PCO2 45 mmHg (32-35); PO2 217 mmHg (83-108); Potassium 3.5 mMOL/L (3.5-5.1); Sodium 143 mMOL/L (136-145); pH 7.34 (7.35-7.45)
[2024-02-28 12:09] LABS: INR 1.55; PT 18.4 Sec (11.4-14.6)
[2024-02-28 12:10] LABS: APTT 31.2 Sec (23.4-35.0)
[2024-02-28 12:11] LABS: Blood Urea Nitrogen 15 mg/dl (7-17); Estimated Creatinine Clearance 64 ml/min; Glucose 109 mg/dl (70-99)
[2024-02-28 12:14] LABS: Glucose - Point of Care 125 mg/dl (70-99)
--- NOTE | 2024-02-28 12:36 | PTCARENOTE ---
Pt arrived from CVOR to CVICU into room 2264 at 1127. Pt is intubated and sedated. Pt remains on Precedex gtt at 0.5mcg/kg/hr. SR with HR 70's. BP 94/51 MAP 65. PA 20/11, CVP 8. CO 3.65, CI 2.32, SVR 1293. Pt briefly on/off Levo/Cardene, currently
both gtts off. Epicardial V wire in place, rate 40, output 10, sensitivity 2. Audible rub on auscultation. #[address] at 21cm on right lip. Oral care completed. Vent set to SIMV FiO2 40%, rate 14, TV 450, pressure support 5, PEEP 5. Pulse
oximetry 97%. Mediastinal chest tubes x2 in place, no sign of air leak or crepitus, drainage red in color. Bowel sounds hypoactive. Tian catheter in place draining yellow urine. Tian care completed. Midsternal incision approximated with surgical
ELISA cerrato. Right IJ cordis in place with [place]-Trinh catheter at 43cm. Left radial Arminda in place. Pt remains on insulin gtt per glycemic protocol. Post-op labs, EKG, and x-ray obtained.
[2024-02-28] MEDS: KCL 50 IV ×2 (13:05→14:14)
[2024-02-28] MEDS: TYLENOL PO (13:05)
[2024-02-28 13:12] LABS: Glucose - Point of Care 143 mg/dl (70-99)
[2024-02-28 14:03] LABS: Glucose - Point of Care 116 mg/dl (70-99)
[2024-02-28] MEDS: LR 500 IV (14:30)
--- NOTE | 2024-02-28 15:00 | PTCARENOTE ---
Pt on Levo gtt at 1mcg/min. BP 111/59 MAP 77. PA 24/13, CVP 8, CO 2.68, CI 1.71, SVR 2028. Discussed with CT PV DESIGN AND INSTALLATION TECHNICIAN, Lety. LR Bolus administered.
[2024-02-28 15:05] LABS: Glucose - Point of Care 98 mg/dl (70-99)
[2024-02-28] MEDS: PACERONE PO (15:12)
--- NOTE | 2024-02-28 15:12 | W.PN.CD ---
Today's Communication / Plan
-
continue pod #0 typical care
Impression / Plan
-
Severe s/p surgical aortic valve replacement with aortic root enlargement and aortoplasty using a bovine pericardial patch [23 mm bioprosthesis] 02/28/24:
Doing well immediately post op, on small levophed gtt
intubated and cooperative, plan for possible extubation today
continue typical post op care
HLD; chronic statin
subjective:
intubated, sedated and cooperative.
Physical Exam
Vital Signs/Labs
Vital Signs
Temp Pulse Resp BP Pulse Ox
97.5 F 60 14 98/56 100
02/28/24 15:00 02/28/24 15:00 02/28/24 15:00 02/28/24 15:00 02/28/24 15:00
02/27/24 02/28/24 02/29/24
06:59 06:59 06:59
Actual Weight 57.6 kg
02/28/24 11:31
PT 18.4 Sec (11.4-14.6) H 02/28/24 11:31
INR 1.55 02/28/24 11:31
APTT 31.2 Sec (23.4-35.0) 02/28/24 11:31
Magnesium 3.0 mg/dl (1.6-2.3) H 02/28/24 11:31
Physical Exam
Constitutional: No acute distress
Cardiovascular: Rhythm & rate is regular, Pedal edema is absent, JVD pressure is normal and Systolic murmur absent
Respiratory: Respiratory effort normal, Lungs clear to auscul., Wheeze Absent and Crackles Absent
Neuro/Psych: Alert and Other (intubated)
Data Reviewed
-
Date of Service: February 28, 2024
EKG: Tracing Personally Visualized and interpreted (NSr with NSR Twave inversions, compared to the prior twave inversions are new/)
[2024-02-28 15:52] LABS: Glucose - Point of Care 134 mg/dl (70-99)
[2024-02-28 16:07] LABS: B.E. -2.1 mmol/L; HCO3 24.2 mmol/L (21-28); Hematocrit 32.2 % (37.0-47.0); Hemoglobin 10.7 g/dL (12.0-16.0); O2 Saturation % 99.4 % (94-98); PCO2 47 mmHg (32-35); PO2 109 mmHg (83-108); Platelet Count 150 10^3/uL (130-400); Potassium 5.4 mMOL/L (3.5-5.1); pH 7.32 (7.35-7.45)
--- NOTE | 2024-02-28 16:21 | W.PN.UPDATE ---
Update Note
Progress Note Update
73-year-old female was electively admitted on 02/28/2024 for aortic valve replacement and root enlargement.IV fluids:
Crystalloid:� 650
U.O.:� 1000
Blood:� none
Wires:� bipolar V-wire
Inotropes:� none
Pressors:� Levo @ 1
Sedatives:� Precedex
�
NEURO: sedated on Precedex, pupils +3mm B/L
RESP: #8OT @23cm> 450/60%/14/5. Lungs clear B/L. 2 mediastinal (cc on arrival) and R/L pleural (cc on arrival) chest tubes to -20cm suction. Sanguineous drainage
CV: RRR +S1, S2, no S3, no�rub, no murmur. Dermabond to median sternotomy. RIJ w/[place] locked @ 43cm. PA 21/10; CVP 9
ABD: round, soft, no BS
EXT: no edema, +2/4 DP pulses B/L, no femoral bruit, left radial A-line intact
: Tian with clear yellow urine
�
A/P: POD #0 s/p AVR #23mm Inspiris with aortic root enlargement and aortoplasty using a bovine pericardial patch
ALBERTO: EF�60-65%
- wean and extubate
- will need instruction regarding antibiotic prophylaxis for dental and invasive procedures
�
# acute surgical blood loss anemia-expected
- trend CBC
# Anxiety/Depression
- resume Lexapro 15mg daily
�
# Hyperlipidemia
- resume�Simvastatin
[2024-02-28] MEDS: DILAUDID 0.25 MG IV ×2 (16:22→19:33)
[2024-02-28] MEDS: ZOFRAN 4 MG IV (16:28)
--- NOTE | 2024-02-28 17:00 | PTCARENOTE ---
Precedex gtt titrated off by 1330. Pt waking up appropriately. CPAP trial initiated. ABG collected and reviewed with CT TELEPHONE SURVEYOR. Pt extubated at 1618 to 6L nasal cannula. Pt able to state name. Achieved 500 with IS. Pt uncomfortable with back pain,
repositioned and PRN Dilaudid administered per order now resting comfortably with son at bedside. Pt SR/SB with HR 50's-60's. BP 111/55 MAP 74. PA pressure 33/14, CVP 12. CO 3.25, CI 2.07, SVR 1501.
[2024-02-28] MEDS: ANCEF 5 IV (17:19)
[2024-02-28] MEDS: LIPITOR 10 MG PO (17:19)
[2024-02-28] MEDS: FLEXERIL 5 MG PO (17:19)
[2024-02-28] MEDS: LOW STRENGTH ASPIRIN 81 MG PO (17:20)
--- NOTE | 2024-02-28 18:00 | PTCARENOTE ---
Positioning of PA and CVP waveform appear inaccurate. [place] positioning remains at 43cm. CT ROAD BUILDER, Lety, made aware.
[2024-02-28 18:19] LABS: Glucose - Point of Care 102 mg/dl (70-99)
[2024-02-28 20:13] LABS: Glucose - Point of Care 114 mg/dl (70-99)
--- NOTE | 2024-02-28 20:20 | PTCARENOTE ---
Assumed care of patient at 1900. Patient found resting in bed at time of assessment. Patient is AOx4, follows commands appropriately, moves all extremities appropriately. Lung sounds are diminished throughout, respirations are shallow, patient is
currently on 4L via NC with saO2 at 99%. Patient has CTx2: 2xmeds to single atrium with wall suction and red sanguineous drainage. Tidaling is present but no air leak or crepitus. Heart sounds have a regular rate and rhythm, patient is SR/SB on the
monitor with first deg AV block an long QT. There is a rub present on auscultation. Patient has normal palpable pulses and no edema is present. Patient has soft nontender abdomen with hypoactive BS. There is a le present draining clear yellow
urine. Patient has sternal incision approx with surgical adhesive FLOORMAN with some ecchymosis noted, but otherwise intact. Patient has R IJ cordis with swan at 43cm, R arm 18G PIV, and L radial [place]. Patient has the following gtts: Levo@3,
Insulin@2.3. Vital signs as follows: T-98.3 RR-18 P-61 BP-107/55 MAP-74 CVP-12 CI-2.17 PAP-28/20. Patient's pulomary artery pressure waveform appears erroneous redressing, repositioning, and zeroing PAP line did not correct issue. CT PA aware no new
orders at this time. Patient c/o 6/10 back pain. Patient repositioned and given 0.25 dilaudid for pain. Patient is stable at this time without pain.
[2024-02-28] MEDS: TYLENOL 1000 MG PO (21:05)
[2024-02-28] MEDS: SENOKOT-S 1 TABLET PO (21:06)
[2024-02-28] MEDS: NEURONTIN 100 MG PO (21:06)
[2024-02-28] MEDS: PACERONE 200 MG PO (21:06)
[2024-02-28 22:11] LABS: Glucose - Point of Care 107 mg/dl (70-99)
[2024-02-28] MEDS: ROXICODONE 5 MG PO (23:10)
[2024-02-28] MEDS: ALBUMIN 5% 250 IV (23:49)
[2024-02-29] VITALS (34 sets, daily range): BP systolic 68–130; BP diastolic 37–73; PULSE 72; O2SAT 92–98; BMI 24.5
[2024-02-29] LABS: Glucose - Point of Care 94 mg/dl (70-99)
--- NOTE | 2024-02-29 00:35 | PTCARENOTE ---
Patient reassessed. VSS. Remains SR/SB with first deg AV block and long QT. Patient given renetta 5 prn for c/o pain will continue to monitor. Patient has low UOP for last couple hours with decreasing CI. CT PA notified and advised administration of
250 mL albumin.
[2024-02-29] MEDS: FLEXERIL 5 MG PO ×2 (02:10→13:48)
[2024-02-29] MEDS: ANCEF 5 IV ×2 (03:00→09:30)
[2024-02-29 04:13] LABS: Glucose - Point of Care 92 mg/dl (70-99)
[2024-02-29 04:30] LABS: Hematocrit 28.7 % (37.0-47.0); Hemoglobin 9.5 g/dL (12.0-16.0); Mean Corp Hgb Conc. 33.1 g/dL (33.0-37.0); Mean Corpuscular Hgb 29.8 pg (27.0-31.0); Mean Platelet Volume 10.4 fL (7.4-10.4); Platelet Count 129 10^3/uL (130-400); Red Blood Cell Count 3.19 10^6/uL (4.20-5.40); Red Cell Dist. Width 13.3 % (11.5-14.5); White Blood Cell Count 29.6 10^3/uL (4.8-10.8)
[2024-02-29] MEDS: ROXICODONE 5 MG PO ×3 (04:49→13:47)
[2024-02-29 04:55] LABS: Blood Urea Nitrogen 23 mg/dl (7-17); Calcium 8.5 mg/dl (8.4-10.2); Carbon Dioxide 24 mmol/L (22-30); Chloride 113 mmol/L (98-107); Estimated Creatinine Clearance 64 ml/min; Glucose 99 mg/dl (70-99); Magnesium 2.2 mg/dl (1.6-2.3); Potassium 4.5 mmol/L (3.5-5.1); Sodium 141 mmol/L (135-145); eGFR > 60.00
--- NOTE | 2024-02-29 05:45 | DOWNTIME ---
There was a [employer] Client Physical Therapy Coordinator Downtime on 02/29/2024 from 0100 to 02/29/2024 at 0337. Downtime documentation of patient's care, including medication administrations, has been reconciled in the electronic record per guidelines. Refer to the
patient's paper chart under the miscellaneous tab to see printed paper medication records and downtime forms.
--- NOTE | 2024-02-29 06:28 | W.PN.CT ---
Today's Communication / Plan
-
Plan:
-hemo stable: levo gtt @3, CI 2.6
-NAEON
-D/C swan, though continue ICU level care with rey jackson 2/ continued levo requirement
-extubated without incident to NC
-NSR wtih 1st degree HB, HR 64
-monitor CT output 75 in 12hr, 245 in 24hr
-monitor urine output 30ml/hr overnight, 1080ml in 24hr
-PT/OT, OOB
-chest PT / IS
-cont current meds
-begin dispo planning
Assessment / Plan
-
s/p Surgical aortic valve replacement with aortic root enlargement and aortoplasty using a bovine pericardial patch [23 mm bioprosthesis] with Dr Goetz on 02/28/24 - POD #1
-
-HLD
-mild pulm HTN note don 01/18/24 cardiac cath
-A1c 6.2
-osteoporosis
-kidney stones s/p lithotripsy x3 2004
-migraines
-L plantar fasciitis
-COPD
-depression / anxiety
-former smoker (quit >10yr ago)
-sinus bradycardia with 1st degree heart block postoperatively
Discussed patient care with: Care Team
Subjective
Procedure
s/p Surgical aortic valve replacement with aortic root enlargement and aortoplasty using a bovine pericardial patch [23 mm bioprosthesis] wtih Dr Goetz on 02/28/24
-
Date of Service: February 29, 2024
Objective Data
-
Lab Results
02/28/24 15:46
02/28/24 11:31
PT 18.4 Sec (11.4-14.6) H 02/28/24 11:31
INR 1.55 02/28/24 11:31
APTT 31.2 Sec (23.4-35.0) 02/28/24 11:31
Vital Signs
Vital Signs
Temp Pulse Resp BP Pulse Ox
98.3 F 63 18 96/69 100
02/28/24 20:00 02/28/24 20:15 02/28/24 20:15 02/28/24 20:00 02/28/24 20:15
CT Intake/Output/Weight
02/28/24 02/28/24 02/29/24
06:59 18:59 06:59
Intake Total 994.1 / 1055.5 61.4 / 1055.5
Output Total 890 / 1025 135 / 1025
Balance 104.1 / 30.5 -73.6 / 30.5
SaO2: 100
Physical Exam
-
General: Awake, Oriented and AOx3
Cardiovascular: Regular rate & rhythm
Respiratory: Clear and Equal
Sternum: Stable
Incision: Clean, Dry and Intact
Extremities: Edema +1
Data Reviewed
-
Lab Results: Results Reviewed
Medications: Active Meds Reviewed
Chest X-Ray: Image Reviewed
Vital Signs / Labs
-
Vital Signs and Labs:
Temp Pulse Resp BP Pulse Ox
98.6 F 64 23 117/60 99
02/29/24 00:00 02/29/24 05:45 02/29/24 05:45 02/29/24 05:00 02/29/24 05:45
02/29/24 04:18
02/29/24 04:18
02/27/24 02/28/24 02/28/24
08:50 07:17 08:06
WBC
RBC
Hgb
Hct
Plt Count
PT
pH
pCO2
pO2
ABG O2 Sat (Measured)
POC ABG O2 Sat (Calc) 99.9 H
Potassium
Chloride
BUN
Glucose
Magnesium
POC pH
POC pO2 295 H
POC pCO2 46 H
POC Glucose 125 H
POC Sodium
POC Potassium
POC Ionized Calcium
POC ACT+ 572 H
POC Hematocrit
Crossmatch IS Only See Detail
02/28/24 02/28/24 02/28/24
08:39 08:44 09:19
WBC
RBC
Hgb
Hct
Plt Count
PT
pH
pCO2
pO2
ABG O2 Sat (Measured)
POC ABG O2 Sat (Calc) 100.0 H
Potassium
Chloride
BUN
Glucose
Magnesium
POC pH 7.58 H
POC pO2 488 H
POC pCO2 31 L
POC Glucose 164 H
POC Sodium
POC Potassium 5.2 H
POC Ionized Calcium 0.91 L
POC ACT+ 540 H 489 H
POC Hematocrit 26 L
Crossmatch IS Only
02/28/24 02/28/24 02/28/24
09:23 09:51 09:56
WBC
RBC
Hgb
Hct
Plt Count
PT
pH
pCO2
pO2
ABG O2 Sat (Measured)
POC ABG O2 Sat (Calc) 99.8 H 99.6 H
Potassium
Chloride
BUN
Glucose
Magnesium
POC pH 7.48 H
POC pO2 200 H 181 H
POC pCO2
POC Glucose 240 H 171 H
POC Sodium 146 H
POC Potassium
POC Ionized Calcium 1.04 L
POC ACT+ 487 H
POC Hematocrit 30 L 30 L
Crossmatch IS Only
02/28/24 02/28/24 02/28/24
10:47 11:07 11:31
WBC
RBC
Hgb 10.4 L
Hct 31.5 L
Plt Count 110 L
PT 18.4 H
pH 7.34 L
pCO2 45 H
pO2 217 H
ABG O2 Sat (Measured) 100.0 H
POC ABG O2 Sat (Calc) 100.0 H 100.0 H
Potassium
Chloride
BUN
Glucose 109 H
Magnesium 3.0 H
POC pH 7.34 L 7.29 L
POC pO2 552 H 508 H
POC pCO2 49 H
POC Glucose
POC Sodium 150 H 149 H
POC Potassium 3.2 L 3.1 L
POC Ionized Calcium 1.58 H 1.45 H
POC ACT+
POC Hematocrit 30 L 30 L
Crossmatch IS Only
02/28/24 02/28/24 02/28/24
11:33 12:08 13:10
WBC
RBC
Hgb
Hct
Plt Count
PT
pH
pCO2
pO2
ABG O2 Sat (Measured)
POC ABG O2 Sat (Calc)
Potassium
Chloride
BUN
Glucose
Magnesium
POC pH
POC pO2
POC pCO2
POC Glucose 113 H 125 H 143 H
POC Sodium
POC Potassium
POC Ionized Calcium
POC ACT+
POC Hematocrit
Crossmatch IS Only
02/28/24 02/28/24 02/28/24
14:01 15:46 15:47
WBC
RBC
Hgb 10.7 L
Hct 32.2 L
Plt Count
PT
pH 7.32 L
pCO2 47 H
pO2 109 H
ABG O2 Sat (Measured) 99.4 H
POC ABG O2 Sat (Calc)
Potassium 5.4 H
Chloride
BUN
Glucose
Magnesium
POC pH
POC pO2
POC pCO2
POC Glucose 116 H 134 H
POC Sodium
POC Potassium
POC Ionized Calcium
POC ACT+
POC Hematocrit
Crossmatch IS Only
02/28/24 02/28/24 02/28/24
18:18 20:09 22:09
WBC
RBC
Hgb
Hct
Plt Count
PT
pH
pCO2
pO2
ABG O2 Sat (Measured)
POC ABG O2 Sat (Calc)
Potassium
Chloride
BUN
Glucose
Magnesium
POC pH
POC pO2
POC pCO2
POC Glucose 102 H 114 H 107 H
POC Sodium
POC Potassium
POC Ionized Calcium
POC ACT+
POC Hematocrit
Crossmatch IS Only
02/29/24
04:18
WBC 29.6 H
RBC 3.19 L
Hgb 9.5 L
Hct 28.7 L
Plt Count 129 L
PT
pH
pCO2
pO2
ABG O2 Sat (Measured)
POC ABG O2 Sat (Calc)
Potassium
Chloride 113 H
BUN 23 H
Glucose
Magnesium
POC pH
POC pO2
POC pCO2
POC Glucose
POC Sodium
POC Potassium
POC Ionized Calcium
POC ACT+
POC Hematocrit
Crossmatch IS Only
[2024-02-29 06:29] LABS: Glucose - Point of Care 94 mg/dl (70-99)
[2024-02-29] MEDS: TYLENOL 1000 MG PO ×3 (06:44→21:57)
--- NOTE | 2024-02-29 07:00 | PTCARENOTE ---
Patient reassessed. VSS. Remains SR on the monitor. AM EKG obtained. AM labs obtained. AM hygiene care provided. Orders received to deline patient's swan. Arminda to remain in place as patient is still on Levo@3. Tian to remain in place per CT PA.
Flexeril for back muscle spasms and renetta 5 for back pain. Patient is stable.
--- NOTE | 2024-02-29 07:07 | W.PN.INTV ---
Addendum entered and electronically signed by David Thompson MD 02/29/24 12:10:
ATTENDING PHYSICIAN ATTESTATION:
(Follow-up Visit:)
I personally saw and evaluated the patient along with the Resident Dr Lao.
Discussed with Resident and discussed in rounds with MDT.
I agree with Resident�s findings and plan as documented in the resident�s note, which was edited by myself.
D/w Mrs Quintana
Original Note:
Documented by User: Medina Lao, , 02/29/24 08:46
Today's Communication / Plan
Recommendations
IS
Aspiration precautions
Assessment
-
Assessment:
Mrs Rashida Quintana is a 73/W adm 02-27 for plan surgery for . Seen at office by Dr Goetz for progressive with MART 0.5 cm2 and worsening functional status. [facility] showed no significant CAD
Impression:
Severe
S/p surgical AV replacement with Ao root enlargement and aortoplasty using a bovine pericardial patch [23 mm bioprosthesis]
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
([facility] with no CAD January 2024)
HLD
OP
Vit D deficiency
OA
Nephrolithiasis, s/p lithotripsy x3 in 2004, utereroscopy stone extraction Aug 2016
Migraine
LBP
Depression, anxiety, panic disorder
L foot bone spur, plantar fasciitis,
Tonsillectomy
Bilateral tubal ligation
Former smoker
Plan:
Extubated yesterday without incidence.
Postop portable CXR: no infiltrates or free air. ETT. RIJ SGC. Sternotomy wiring. Chest/med tubes
CXR this morning, no acute findings.
Pulmonary artery catheter parameters will be followed
Pressors/antihypertensive/inotropes/diuretics will be provided as needed
Monitor chest tube output
Monitor hemoglobin
Monitor platelet count and coags
Transfuse blood product if needed
CT surgery following chest tubes
Monitor blood sugar
Insulin drip per protocol
Aspiration precautions
DVT prophylaxis
Early nutrition
Early mobilization
D/w CTSx RN
Reconsult as needed.
Subjective Dataa
Subjective Data
Date of Service:
Date of Service: February 29, 2024
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
Subjective:
Patient was examined at beside and had no acute overnight events.
Review of Systems
General: Other (negative unless stated otherwise)
Objective Data
Data Reviewed
Vital Signs / I&O / Oxygen:
Vital Signs
Temp Pulse Resp BP Pulse Ox
98.6 F 64 23 117/60 99
02/29/24 00:00 02/29/24 05:45 02/29/24 05:45 02/29/24 05:00 02/29/24 05:45
Intake and Output
02/28/24 02/29/24 03/01/24
06:59 06:59 06:59
Intake Total 1507.9 / 1507.9
Output Total 1175 / 1175
Balance 332.9 / 332.9
SaO2 [CPAP] 99
SaO2 [SIMV] 98
SaO2 99
Nasal Cannula flow liters per 3
minute
Physical Exam
General: Fever (n) and Chills (n)
HEENT: Normocephalic
Cardiovascular: S1-S2
Respiratory: Clear
GI: Soft, Non Distended and Non Tender
Neurology: Awake, Alert and Oriented
Labs/Micro/Reports
Lab Data
02/29/24 04:18
02/29/24 04:18
Laboratory Results
02/28/24 02/28/24
11:31 15:46
PT 18.4 H
INR 1.55
APTT 31.2
pH 7.34 L 7.32 L
pCO2 45 H 47 H
pO2 217 H 109 H
HCO3 24.3 24.2
O2 Delivery Level

Documented by User: David Thompson MD 02/29/24 12:09
Assessment
-
Assessment:
Mrs Rashida Quintana is a 73/W adm 02-27 for plan surgery for . Seen at office by Dr Goetz for progressive with MART 0.5 cm2 and worsening functional status. [facility] showed no significant CAD
Impression:
Severe
S/p surgical AV replacement with Ao root enlargement and aortoplasty using a bovine pericardial patch [23 mm bioprosthesis]: 02-27
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
([facility] with no CAD January 2024)
HLD
OP
Vit D deficiency
OA
Nephrolithiasis, s/p lithotripsy x3 in 2004, utereroscopy stone extraction Aug 2016
Migraine
LBP
Depression, anxiety, panic disorder
L foot bone spur, plantar fasciitis,
Tonsillectomy
Bilateral tubal ligation
Former smoker
Plan:
Extubated yesterday without incident.
Postop portable CXR: no infiltrates or free air. ETT. RIJ SGC. Sternotomy wiring. Chest/med tubes
CXR this morning, no acute findings.
Pulmonary artery catheter parameters will be followed
Pressors/antihypertensive/inotropes/diuretics will be provided as needed
Monitor chest tube output
Monitor hemoglobin
Monitor platelet count and coags
Transfuse blood product if needed
CT surgery following chest tubes
Monitor blood sugar
Insulin drip per protocol
Aspiration precautions
DVT prophylaxis
Early nutrition
Early mobilization
D/w CTSx RN
Reconsult as needed.
Subjective Dataa
Subjective Data
Subjective:
Patient was examined at beside and had no acute overnight events.
Extubated yesterday
Review of Systems
Cardiopulmonary: Chest Pain (Incisional pain)
Objective Data
Physical Exam
HEENT: Moist Mucous Membranes
Cardiovascular: Regular Rhythm and Peripheral Edema (n)
Respiratory: Non-Labored Respirations, Stridor (n) and Chest Tube
Neurology: AO x 3 and No Motor Deficits
Skin: Warm
--- NOTE | 2024-02-29 08:30 | PTCARENOTE ---
Assumed care of patient at 0700. Pt is awake, alert, and oriented. Pt remains SR with HR 60's-70's. BP 119/44 MAP 68. Remains on Levo at 2mcg/min. V wire remains in place set to VVI 40/10. Pulse oximetry 95% on 2L nasal cannula. Mediastinal chest
tubes x2 in place, no sign of air leak or crepitus, drainage serosanguineous. Pt tolerating clear liquid diet. Tian catheter remains in place. Midsternal incision approximated and INSURANCE WRITER. Right IJ cordis in place with KVO. Left radial A line intact.
Pt remains on insulin gtt per glycemic protocol.
[2024-02-29 08:53] LABS: Glucose - Point of Care 111 mg/dl (70-99)
[2024-02-29] MEDS: LOW STRENGTH ASPIRIN 81 MG PO (09:00)
[2024-02-29] MEDS: NEURONTIN 100 MG PO ×3 (09:00→21:58)
[2024-02-29] MEDS: SENOKOT-S 1 TABLET PO ×2 (09:00→21:59)
[2024-02-29] MEDS: PROTONIX 40 MG PO (09:00)
[2024-02-29] MEDS: MAGNESIUM OXIDE 500 MG PO ×2 (09:00→21:57)
[2024-02-29] MEDS: PACERONE 200 MG PO ×3 (09:00→22:00)
[2024-02-29] MEDS: NOVOLOG FLEXPEN SC (09:01)
[2024-02-29] MEDS: BACTROBAN 2% OINTMENT 1 APPLIC NASAL ×2 (09:01→21:58)
[2024-02-29] MEDS: LIDOCAINE 4% PATCH 1 PATCH TOPICAL (09:02)
[2024-02-29] MEDS: LEXAPRO 15 MG PO (09:02)
[2024-02-29] MEDS: LOPRESSOR PO (09:02)
[2024-02-29] MEDS: LEVOPHED 250 IV (09:30)
[2024-02-29 09:53] LABS: Glucose - Point of Care 124 mg/dl (70-99)
[2024-02-29 10:01] LABS: Glucose - Point of Care 96 mg/dl (70-99)
--- NOTE | 2024-02-29 10:04 | W.PN.CD ---
Today's Communication / Plan
-
wean levophed as tolerated.
continue post op care as directed by CT surgery
Impression / Plan
-
Severe s/p surgical aortic valve replacement with aortic root enlargement and aortoplasty using a bovine pericardial patch [23 mm bioprosthesis] 02/28/24:
- still on low dose Levo
- in sinus
- continue post op care per Ct surgery
Post op anemia - monitor
HLD; statin
Physical Exam
Vital Signs/Labs
Vital Signs
Temp Pulse Resp BP Pulse Ox
98.3 F 69 22 100/48 96
02/29/24 09:00 02/29/24 09:15 02/29/24 09:15 02/29/24 09:00 02/29/24 09:00
02/28/24 02/29/24 03/01/24
06:59 06:59 06:59
Actual Weight 57.6 kg
02/29/24 04:18
02/29/24 04:18
PT 18.4 Sec (11.4-14.6) H 02/28/24 11:31
INR 1.55 02/28/24 11:31
APTT 31.2 Sec (23.4-35.0) 02/28/24 11:31
Magnesium 2.2 mg/dl (1.6-2.3) 02/29/24 04:18
Physical Exam
Constitutional: No acute distress
EENT: Anicteric
Cardiovascular: Rhythm & rate is regular
Respiratory: Respiratory effort normal
GI: Soft
Neuro/Psych: Alert
Data Reviewed
-
Date of Service: February 29, 2024
Medical Decision Making: Reviewed Test Results
EKG: Report Reviewed by me
Medical Tests (PFT, Pathology etc): Report Reviewed by me
Labs: Labs Reviewed by me
[2024-02-29] MEDS: CALCIUM CHLORIDE 10% SYRINGE 60 MG IV (10:54)
[2024-02-29] MEDS: NSS IV (10:55)
--- NOTE | 2024-02-29 11:00 | W.PN.ANS.POP ---
Anesthesia Post Operative
- Anesthesia Post Op Note
Vital Signs Stable-See Nursing Note: Yes
Airway Patent: Yes
Adequate Pain Control: Yes
Change in Mental Status: No
Current Postoperative Nausea & Vomiting: No
Anesthesia Complications: No
General Anesthetic Recall: No
Unplanned Admission: No
Post Op Hydration Adequate: Yes
- -
Pt awake and alert, OOB- chair, comfortable with no anesthesia related c/o at time of post op visit..VSS
[2024-02-29] MEDS: LR 250 IV (11:19)
[2024-02-29] MEDS: NOVOLOG FLEXPEN 4 UNITS SC (11:43)
[2024-02-29] MEDS: ZOFRAN 4 MG IV (11:44)
--- NOTE | 2024-02-29 12:15 | PTCARENOTE ---
1gm Calcium administered per order. 250ml LR bolus administered. Levo gtt now off. BP 117/50 MAP 70.
[2024-02-29 13:32] LABS: Glucose - Point of Care 162 mg/dl (70-99)
[2024-02-29] MEDS: ProAmatine 5 MG PO ×2 (13:47→18:39)
[2024-02-29 15:28] LABS: Glucose - Point of Care 140 mg/dl (70-99)
--- NOTE | 2024-02-29 16:15 | PTCARENOTE ---
V wire insulated. A line d/c'd. Tian catheter removed at 1600, due to void by 2200. Insulin gtt d/c'd. BP 98/53 MAP 66.
[2024-02-29] MEDS: NOVOLOG FLEXPEN-MODERATE RESISTANCE SC (16:35)
[2024-02-29 16:37] LABS: Glucose - Point of Care 141 mg/dl (70-99)
[2024-02-29] MEDS: LIPITOR 10 MG PO (18:39)
--- NOTE | 2024-02-29 20:00 | PTCARENOTE ---
Assumed care of patient at 1900. Patient found in chair at time of assessment. Patient is AOx4, follows commands appropriately, moves all extremities, noticeably drowsy. Patient has shallow resps, diminished throughout, patient is on 2L via NC with
saO2 at 97%. Heart sounds have a regular rate and rhythm, patient is NSR on the monitor, patient has normal palpable pulses, and no edema is noted. Patient has active BS throughout al four quadrants patient had le removed at 1600 due to void at
2200. Patient has sternal incision that is approx with surg adhesive echhymotic and POTATO CHIP MAKER. Patient has R IJ corids receiving KVO, and R arm 18G PIV available for intermittent infusion. Patient has no complaints of pain. Assisted patient from chair to
bed without incident.
[2024-02-29] MEDS: LOPRESSOR 12.5 MG PO (21:57)
[2024-02-29 22:09] LABS: Glucose - Point of Care 148 mg/dl (70-99)
[2024-03-01] VITALS (31 sets, daily range): BP systolic 66–121; BP diastolic 38–81; PULSE 53; O2SAT 2–93; BMI 25.0
--- NOTE | 2024-03-01 00:30 | PTCARENOTE ---
Patient reassessed. VSS. Minimal CT output. Patient remains in SR on the monitor. Patient with no void in time period and no urge to void present. Bladderscan of patient revealed 238 cc urine at this time. Patient will be reassessed in six hours if
no void occurs. No c/o pain or nausea at this time.
[2024-03-01 03:42] LABS: Hematocrit 27.6 % (37.0-47.0); Hemoglobin 8.8 g/dL (12.0-16.0); Mean Corp Hgb Conc. 31.9 g/dL (33.0-37.0); Mean Corpuscular Hgb 29.8 pg (27.0-31.0); Mean Corpuscular Volume 93.6 fL (81.0-99.0); Red Blood Cell Count 2.95 10^6/uL (4.20-5.40); Red Cell Dist. Width 13.7 % (11.5-14.5); White Blood Cell Count 17.9 10^3/uL (4.8-10.8)
[2024-03-01 04:10] LABS: Blood Urea Nitrogen 31 mg/dl (7-17); Calcium 8.9 mg/dl (8.4-10.2); Carbon Dioxide 28 mmol/L (22-30); Chloride 103 mmol/L (98-107); Estimated Creatinine Clearance 55 ml/min; Glucose 164 mg/dl (70-99); Magnesium 2.1 mg/dl (1.6-2.3); Potassium 5.1 mmol/L (3.5-5.1); Sodium 134 mmol/L (135-145); eGFR > 60.00
--- NOTE | 2024-03-01 04:30 | PTCARENOTE ---
Patient reassessed. VSS. Weaned to 1L o2 via NC. Remains SR to SB on the monitor. Patient with no void since le removal scanned for 238. Will continue to monitor. Patient sleeping at this time no complaints.
[2024-03-01 05:34] LABS: Platelet Count 97 10^3/uL (130-400)
[2024-03-01 05:35] LABS: Mean Platelet Volume 11.7 fL (7.4-10.4)
--- NOTE | 2024-03-01 06:07 | W.PN.CT ---
Today's Communication / Plan
-
Plan:
-hemo stable
-NAEON
-1L NC
-HR 62, NSR
-monitor CT output, med 35 in 12hr, 235 in 24hr
-monitor urine output - le removed [] awaiting void, bladder scan/straight cath protocol in place
-drowsy, pain meds decreased yesterday
-PT/OT, OOB
-chest PT / IS
-cont current meds
-begin dispo planning
Assessment / Plan
-
s/p Surgical aortic valve replacement with aortic root enlargement and aortoplasty using a bovine pericardial patch [23 mm bioprosthesis] with Dr Goetz on 02/28/24 - POD #3
-
-HLD
-mild pulm HTN note don 01/18/24 cardiac cath
-A1c 6.2
-osteoporosis
-kidney stones s/p lithotripsy x3 2004
-migraines
-L plantar fasciitis
-COPD
-depression / anxiety
-former smoker (quit >10yr ago)
-sinus bradycardia with 1st degree heart block postoperatively
Discussed patient care with: Care Team
Subjective
Procedure
s/p Surgical aortic valve replacement with aortic root enlargement and aortoplasty using a bovine pericardial patch [23 mm bioprosthesis] wtih Dr Goetz on 02/28/24
-
Date of Service: March 01, 2024
Objective Data
-
Lab Results
02/29/24 04:18
02/29/24 04:18
PT 18.4 Sec (11.4-14.6) H 02/28/24 11:31
INR 1.55 02/28/24 11:31
APTT 31.2 Sec (23.4-35.0) 02/28/24 11:31
Vital Signs
Vital Signs
Temp Pulse Resp BP Pulse Ox
98.5 F 70 22 120/56 96
02/29/24 15:00 02/29/24 21:57 02/29/24 19:45 02/29/24 21:57 02/29/24 19:00
CT Intake/Output/Weight
02/29/24 02/29/24 03/01/24
06:59 18:59 06:59
Intake Total 739.2 / 1755.2 164.7 / 164.7
Output Total 540 / 1475 430 / 430
Balance 199.2 / 280.2 -265.3 / -265.3
SaO2: 96
Physical Exam
-
General: Awake, Oriented and AOx3
Cardiovascular: Regular rate & rhythm
Respiratory: Clear and Equal
Sternum: Stable
Incision: Clean, Dry and Intact
Extremities: Edema +1
Data Reviewed
-
Lab Results: Results Reviewed
Medications: Active Meds Reviewed
Chest X-Ray: Image Reviewed
Vital Signs / Labs
-
Vital Signs and Labs:
Temp Pulse Resp BP Pulse Ox
98.2 F 62 22 109/58 97
03/01/24 03:22 03/01/24 03:22 03/01/24 03:22 03/01/24 03:22 03/01/24 03:22
03/01/24 03:12
03/01/24 03:12
02/27/24 02/29/24 02/29/24
08:50 02:03 08:42
WBC
RBC
Hgb
Hct
MCHC
Plt Count
MPV
Sodium
BUN
Glucose
POC Glucose 124 H 111 H
Crossmatch IS Only See Detail
02/29/24 02/29/24 02/29/24
13:31 15:26 16:34
WBC
RBC
Hgb
Hct
MCHC
Plt Count
MPV
Sodium
BUN
Glucose
POC Glucose 162 H 140 H 141 H
Crossmatch IS Only
02/29/24 03/01/24
22:08 03:12
WBC 17.9 H
RBC 2.95 L
Hgb 8.8 L
Hct 27.6 L
MCHC 31.9 L
Plt Count 97 L D
MPV 11.7 H
Sodium 134 L
BUN 31 H
Glucose 164 H
POC Glucose 148 H
Crossmatch IS Only
[2024-03-01] MEDS: TYLENOL 1000 MG PO ×3 (06:29→22:48)
--- NOTE | 2024-03-01 08:06 | W.PN.CD ---
Today's Communication / Plan
-
Furosemide 40 mg IV x1 and monitor.
Encourage incentive spirometry.
Ambulate when appropriate.
Chest tube/pain management per CT surgery.
Impression / Plan
-
Impression/Plan: 73 y/o female with severe aortic valve stenosis and aortic anatomy that was not accommodating to TAVR admitted for elective SAVR with aortic root enlargement.
#Severe
-Chronic. Not a good TAVR candidate given small aortic root sinuses/coronary heights. Furthermore, she would not be a good TAVR in TAVR candidate in 10 years.
-Now s/p #23 [place] Inspiris Resilia surgical aortic valve (serial #[id number]) with aortic root enlargement and aortoplasty using a bovine pericardial patch (serial number [id number]), 02/28/[address] Goetz.
-Expectant management post op.
-Given her increase in weight, decrease in Na and falling Hbg (I suspect some dilution), she is likely at a point where we can start diuresis. I suggest furosemide 40 mg IV x1 and monitor response.
-Encourage incentive spirometry.
-Ambulate when appropriate.
-Chest tube/pain management per CT surgery.
#HLD
-Chronic, stable.
-Continue atovastatin.
Critical Care Time = 32 minutes.
Subjective/Interval History:
No acute events overnight.
Weaned from norepinephrine yesterday.
Down to 1LNC.
Weight is up 1.2 kg from yesterday, 2.5 kg overall.
Na is down.
Hbg down to 8.8.
DATA:
Cardiac Catheterization, 01/18/2024:
CONCLUSIONS:
1. Right dominant circulation with moderate tortuosity in the right coronary system but no coronary artery disease. The RCA has a high, anterior takeoff.
2. Moderately elevated filling pressures (PCWP = 20 mmHg at 56.6 kg).
3. Severe aortic valve stenosis by echocardiography.
4. Mild postcapillary pulmonary hypertension, WHO group 2.
TTE, 01/02/2024:
CONCLUSIONS
Normal left ventricular size and systolic function.
LV ejection fraction is 55-60% .
Severe aortic stenosis.
Mild aortic regurgitation.
Compared to the previous report from 12/30/2022 transaortic gradients have
increased. Previously mean gradient peak gradient of 73 mmHg and a mean
gradient of 46.
Physical Exam
Vital Signs/Labs
Vital Signs
Temp Pulse Resp BP Pulse Ox
36.8 C 70 22 121/55 90
03/01/24 03:22 03/01/24 08:05 03/01/24 08:05 03/01/24 08:00 03/01/24 07:45
02/28/24 02/29/24 03/01/24
11:59 11:59 11:59
Actual Weight 57.6 kg 58.9 kg 60.1 kg
03/01/24 03:12
03/01/24 03:12
PT 18.4 Sec (11.4-14.6) H 02/28/24 11:31
INR 1.55 02/28/24 11:31
APTT 31.2 Sec (23.4-35.0) 02/28/24 11:31
Magnesium 2.1 mg/dl (1.6-2.3) 03/01/24 03:12
Physical Exam
Constitutional: No acute distress and Comfortable
EENT: Anicteric and Moist mucous membranes
Cardiovascular: Rhythm & rate is regular, Pedal edema is absent, JVD pressure is normal, S1S2 is normal and Murmur/rub/gallop absent
Respiratory: Labored respirations and Other (Decreased throughout.)
GI: Soft, Distention absent, Flat, Non tender and Normal bowel sounds
Neuro/Psych: AO x 3
Data Reviewed
-
Date of Service: March 01, 2024
Medical Decision Making: Reviewed Test Results, Independent Historian Assessment and Test Interpretation
EKG: Tracing Personally Visualized and interpreted and Report Reviewed by me
Echo: Tracing Personally Visualized and interpreted and Report Reviewed by me
X-Ray/CT/US/MRI/NUC/PET: Image Personally Visualized and interpreted and Report Reviewed by me
Medical Tests (PFT, Pathology etc): Image Personally Visualized and interpreted and Report Reviewed by me
Labs: Labs Reviewed by me
Old Records: Reviewed
--- NOTE | 2024-03-01 08:07 | PTCARENOTE ---
assumed care of pt from previous shift RN, sinus rhythm on tele, epicardial wire insulated, + peripheral pulses, no edema. Lungs diminished, pox 88-90% on RA, 97% on 2L NC. +BS, voided this am- missed hat- PVR 370, will monitor. MSI ELISA,
approximated. CT sites intact. Right IJ cordis w KVO infusing, PIV flushes easily. Plan of care reviewed w the pt and questions encouraged.
[2024-03-01 08:11] LABS: Glucose - Point of Care 126 mg/dl (70-99)
[2024-03-01] MEDS: NOVOLOG FLEXPEN-MODERATE RESISTANCE SC (08:14)
[2024-03-01] MEDS: LEXAPRO 15 MG PO (08:43)
[2024-03-01] MEDS: LOPRESSOR 12.5 MG PO (08:43)
[2024-03-01] MEDS: PACERONE 200 MG PO ×3 (08:43→22:48)
[2024-03-01] MEDS: PROTONIX 40 MG PO (08:43)
[2024-03-01] MEDS: MAGNESIUM OXIDE 500 MG PO ×2 (08:43→20:35)
[2024-03-01] MEDS: SENOKOT-S 1 TABLET PO ×2 (08:43→20:35)
[2024-03-01] MEDS: NEURONTIN 100 MG PO ×2 (08:43→20:35)
[2024-03-01] MEDS: LIDOCAINE 4% PATCH 1 PATCH TOPICAL (08:44)
[2024-03-01] MEDS: LOW STRENGTH ASPIRIN 81 MG PO (08:44)
[2024-03-01] MEDS: VITAMIN C 250 MG PO (08:44)
[2024-03-01] MEDS: NSS 500 IV (08:44)
[2024-03-01] MEDS: BACTROBAN 2% OINTMENT 1 APPLIC NASAL ×2 (08:44→20:34)
[2024-03-01] MEDS: ProAmatine 5 MG PO ×2 (09:14→10:51)
[2024-03-01] MEDS: ProAmatine PO (09:15)
--- NOTE | 2024-03-01 10:53 | PTCARENOTE ---
pacing wires removed by CT HARRIET. Bedrest and frequent VS reviewed w pt, questions encouraged.
[2024-03-01 11:38] LABS: Glucose - Point of Care 161 mg/dl (70-99)
[2024-03-01] MEDS: NOVOLOG FLEXPEN-MODERATE RESISTANCE 1 UNITS SC ×2 (11:39→16:34)
[2024-03-01] MEDS: ULTRAM 25 MG PO (11:43)
--- NOTE | 2024-03-01 12:12 | PTCARENOTE ---
Cts removed as ordered. Pt assisted OOB to chair.
--- NOTE | 2024-03-01 12:58 | PN.CDI ---
Addendum entered and electronically signed by Viet Brady PA-C 03/01/24 16:42:
Pt with bilateral atelectasis
Original Note:
CDI
- -
CDI:
Physician Documentation Request
Admit Date: 02/28/24 04:[address] Surgery,
Clinical Indicators:
The diagnosis of bibasilar atelectasis was included in the signed CXR.
02/28 CXR report, 'There is minimal increase in bibasilar atelectasis'
03/01 RN note (08:07), ' Lungs diminished, pox 88-90% on RA'
O2 requirements: 1-2 L NC
IS ordered.
Please indicate in your progress notes if you are in agreement that the above diagnosis is valid for this patient:
Atelectasis is a valid diagnosis (Please include it in your progress notes)
Atelectasis is not a valid diagnosis for this patient
Atelectasis is not yet confirmed but remains a suspected condition
Other
Use of terms such as suspected, likely, concern for, or probable are acceptable for a diagnosis that is being evaluated, monitored or treated as if it exists and can be coded in the inpatient setting, when documented at the time of discharge.
Thank you,
LUPILLO Cruz RN
CDI Specialist
available via tiger text
Please use your independent medical judgment in providing your response.
--- NOTE | 2024-03-01 13:32 | PTCARENOTE ---
Resumed care of pt from previous RN; pt AAOx3 and resting comfortably in chair; Sinus Bradycardia on monitor and VSS; Lungs diminished and IS to 500; educated pt on the benefits of IS; positive bowel sounds; pt voiding clear yellow urine; surgical
site C/D/I.
[2024-03-01] MEDS: FERRLECIT 110 MG IV (14:14)
[2024-03-01] MEDS: ProAmatine 10 MG PO ×2 (14:14→17:15)
--- NOTE | 2024-03-01 15:07 | CM ---
Reviewed chart. Met with Mrs. Quintana and her son to review discharge plans. She states she is feeling okay. She states she resides alone in a first floor condo with one small step to enter. Prior to admission she was independent with
ambulation and adls. She does not have any DME in the home. 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 She states her son will spend the first night with her. He states he resides nearby and he can be available to assist in her care if needed.
Also she states she has a neighbor who resides upstairs that can check on her also. We reviewed a home visit by the Cardiothoracic Transitional Care Nurse. She is agreeable to a home visit. Medical work-up in progress. The discharge plan is to
return home with her family and neighbor support and a home visit by the Cardiothoracic Transitional Care Nurse when medically stable.
--- NOTE | 2024-03-01 16:24 | PTCARENOTE ---
Sinus Bradycardia on monitor and VSS; assessment unchanged.
[2024-03-01 16:30] LABS: Glucose - Point of Care 165 mg/dl (70-99)
[2024-03-01] MEDS: LIPITOR 10 MG PO (17:15)
--- NOTE | 2024-03-01 17:35 | PTCARENOTE ---
Pt with frequent urination voiding 100-150mls; bladder scan preformed and result 467mls; update CV SEWER BRICKLAYER, new orders placed for Flomax by CV SEWER BRICKLAYER and wait on straight cath at this time per CV SEWER BRICKLAYER.
[2024-03-01] MEDS: FLOMAX 0.400000000000000022 MG PO (17:42)
--- NOTE | 2024-03-01 21:00 | PTCARENOTE ---
Patient received resting OOB in chair watching television. Patient A+A+Ox3. No neurological deficits noted. O2 2L via NC. SaO2 93%. Sinus Bradycardia to Sinus Rhythm. Heart rate 50-60's. Blood pressure 102/59 (70). No c/o chest pain,
pressure or discomfort. Normoactive bowel sounds. No BM. No c/o nausea. No vomiting. Patient assisted to bathroom to void. Voided 125 ml yellow urine. Patient to bed. Sternal incision - Intact - Surgical adhesive - Open to air. Chest tube
dressing intact. Right I.J. Cordis - Intact and patent - Saline flush 10 ml/hr. Positive pulses. No c/o back or flank pain. Patient with c/o left arm discomfort - Positive radial pulse - No swelling or redness noted - Positive circulation,
sensation and movement to left upper extremity. Wrapped in warm blanket and elevated on pillow. Patient to sleep. Assessment as documented.
[2024-03-01 22:46] LABS: Glucose - Point of Care 131 mg/dl (70-99)
[2024-03-02] VITALS (10 sets, daily range): BP systolic 91–113; BP diastolic 49–60; PULSE 74; O2SAT 94–95; BMI 25.1
--- NOTE | 2024-03-02 | PTCARENOTE ---
Patient assisted to bathroom to void. Voided 150 ml yellow urine. Sternal precautions. Mild SOLER. Patient back to bed. 2L O2. Patient to sleep. No further changes from previous assessment.
--- NOTE | 2024-03-02 00:11 | W.PN.CT ---
Today's Communication / Plan
-
No significant events overnight
Pacer and CT wires dc yesterday�
Acute urine retention = Flomax�
Post op Hypotension = midodrine, Lopressor on (hold); low threshold for albumin/LR if patient's orthostasis/BP needs support.��
Cont. Current meds = (Amio, ASA, Lipitor) �
Diuresis = 40mg of Lasix *1 given yesterday�
Maintain cordis �
Encourage IS and OOB�
Assessment / Plan
-
s/p Surgical aortic valve replacement with aortic root enlargement and aortoplasty using a bovine pericardial patch [23 mm bioprosthesis] with Dr Goetz on 02/28/24 - POD #4
-
-HLD
-mild pulm HTN note don 01/18/24 cardiac cath
-A1c 6.2
-osteoporosis
-kidney stones s/p lithotripsy x3 2004
-migraines
-L plantar fasciitis
-COPD
-depression / anxiety
-former smoker (quit >10yr ago)
-sinus bradycardia with 1st degree heart block postoperatively
Subjective
Procedure
s/p Surgical aortic valve replacement with aortic root enlargement and aortoplasty using a bovine pericardial patch [23 mm bioprosthesis] wtih Dr Goetz on 02/28/24
-
Date of Service: March 02, 2024
Objective Data
-
PT 18.4 Sec (11.4-14.6) H 02/28/24 11:31
INR 1.55 02/28/24 11:31
APTT 31.2 Sec (23.4-35.0) 02/28/24 11:31
Vital Signs
Vital Signs
Temp Pulse Resp BP Pulse Ox
97.8 F 64 16 102/54 95
03/01/24 22:45 03/01/24 22:48 03/01/24 22:45 03/01/24 22:48 03/01/24 22:[address]
CT Intake/Output/Weight
03/01/24 03/01/24 03/02/24
06:59 18:59 06:59
Intake Total 110 / 274.7 170 / 700 530 / 700
Output Total 55 / 485 925 / 1200 275 / 1200
Balance 55 / -210.3 -755 / -500 255 / -500
SaO2: 95
Physical Exam
-
General: Awake
Cardiovascular: Regular rate & rhythm
Respiratory: Clear
Sternum: Stable
Incision: Clean, Dry and Intact
Extremities: No Edema
[2024-03-02] MEDS: ULTRAM 25 MG PO (02:25)
--- NOTE | 2024-03-02 02:30 | PTCARENOTE ---
Patient rang call marcos. Patient assisted to bathroom to void. Voided 250 ml yellow urine. Patient back to bed. [facility] bath and linens changed. Chest tube dressing changed. Patient with c/o left arm discomfort. Ultram 25 mg PO given for 5/10
pain. Ice pack to left arm. Patient back to sleep. No further changes from previous assessment.
[2024-03-02 03:58] LABS: Hematocrit 23.8 % (37.0-47.0); Mean Corp Hgb Conc. 33.6 g/dL (33.0-37.0); Mean Corpuscular Hgb 30.2 pg (27.0-31.0); Mean Corpuscular Volume 89.8 fL (81.0-99.0); Mean Platelet Volume 11.2 fL (7.4-10.4); Platelet Count 86 10^3/uL (130-400); Red Blood Cell Count 2.65 10^6/uL (4.20-5.40); Red Cell Dist. Width 13.4 % (11.5-14.5); White Blood Cell Count 13.2 10^3/uL (4.8-10.8)
[2024-03-02 04:20] LABS: Blood Urea Nitrogen 25 mg/dl (7-17); Calcium 8.7 mg/dl (8.4-10.2); Carbon Dioxide 30 mmol/L (22-30); Chloride 104 mmol/L (98-107); Estimated Creatinine Clearance 64 ml/min; Glucose 123 mg/dl (70-99); Potassium 4.7 mmol/L (3.5-5.1); Sodium 136 mmol/L (135-145); eGFR > 60.00
[2024-03-02] MEDS: TYLENOL PO (06:00)
--- NOTE | 2024-03-02 06:15 | PTCARENOTE ---
Patient A+A+Ox3. No neurological deficits noted. Patient assisted to bathroom to void. Standing scale weight 60.2 kg. OOB to chair. No c/o pain or discomfort. Assessment/Interventions as documented.
[2024-03-02 07:36] LABS: Glucose - Point of Care 110 mg/dl (70-99)
[2024-03-02] MEDS: NOVOLOG FLEXPEN-MODERATE RESISTANCE SC ×2 (07:40→16:54)
--- NOTE | 2024-03-02 07:57 | PTCARENOTE ---
Pt received from outgoing RN, POD 3, pt oob in a chair, aaox4, 1Lnc o2 97%, VSS, c/o pain to left arm Ice pack applied, NSR, breakfast ordered, ACHS bs.
[2024-03-02] MEDS: LIDOCAINE 4% PATCH 1 PATCH TOPICAL (08:08)
[2024-03-02] MEDS: SENOKOT-S 1 TABLET PO ×2 (08:08→20:31)
[2024-03-02] MEDS: PROTONIX 40 MG PO (08:09)
[2024-03-02] MEDS: PACERONE 200 MG PO ×3 (08:09→22:07)
[2024-03-02] MEDS: FLOMAX 0.400000000000000022 MG PO (08:09)
[2024-03-02] MEDS: LEXAPRO 15 MG PO (08:09)
[2024-03-02] MEDS: VITAMIN C 250 MG PO (08:09)
[2024-03-02] MEDS: LOW STRENGTH ASPIRIN 81 MG PO (08:09)
[2024-03-02] MEDS: ProAmatine 10 MG PO ×3 (08:09→17:40)
[2024-03-02] MEDS: MAGNESIUM OXIDE 500 MG PO ×2 (08:09→20:31)
[2024-03-02] MEDS: NEURONTIN 100 MG PO ×2 (08:09→20:31)
[2024-03-02] MEDS: BACTROBAN 2% OINTMENT 1 APPLIC NASAL ×2 (08:10→20:31)
--- NOTE | 2024-03-02 09:16 | W.PN.CD ---
Addendum entered and electronically signed by Pete Lutz MD 03/03/24 14:57:
Monitor postop anemia additional decisions regarding PRBCs being directed by Dr. Goetz
Original Note:
Today's Communication / Plan
-
post op pain control
continue to monitor bp
Impression / Plan
-
Impression/Plan: 73 y/o female with severe aortic valve stenosis and aortic anatomy that was not accommodating to TAVR admitted for elective SAVR with aortic root enlargement.
#Severe
-Chronic. Not a good TAVR candidate given small aortic root sinuses/coronary heights. Furthermore, she would not be a good TAVR in TAVR candidate in 10 years.
-Now s/p #23 Archuleta Inspiris Resilia surgical aortic valve (serial #[id number]) with aortic root enlargement and aortoplasty using a bovine pericardial patch (serial number [id number]), 02/28/[address] Goetz.
-Expectant management post op.
-Post op bp has been low, now on midodrine increased to 10mg with improved response.
-Ambulate when appropriate.
-Chest tube/pain management per CT surgery.
#HLD
-Chronic, stable.
-Continue atovastatin.
#right arm pain:
-post op
-good strength, equal to the left
-?MSK from positioning continue to monitor
Subjective/Interval History:
she has pain in her right arm, no weekness, no cp
DATA:
Cardiac Catheterization, 01/18/2024:
CONCLUSIONS:
1. Right dominant circulation with moderate tortuosity in the right coronary system but no coronary artery disease. The RCA has a high, anterior takeoff.
2. Moderately elevated filling pressures (PCWP = 20 mmHg at 56.6 kg).
3. Severe aortic valve stenosis by echocardiography.
4. Mild postcapillary pulmonary hypertension, WHO group 2.
TTE, 01/02/2024:
CONCLUSIONS
Normal left ventricular size and systolic function.
LV ejection fraction is 55-60% .
Severe aortic stenosis.
Mild aortic regurgitation.
Compared to the previous report from 12/30/2022 transaortic gradients have
increased. Previously mean gradient peak gradient of 73 mmHg and a mean
gradient of 46.
Physical Exam
Vital Signs/Labs
Vital Signs
Temp Pulse Resp BP Pulse Ox
98.2 F 72 18 110/54 97
03/02/24 07:17 03/02/24 08:45 03/02/24 07:17 03/02/24 07:17 03/02/24 07:53
03/01/24 03/02/24 03/03/24
06:59 06:59 06:59
Actual Weight 60.1 kg 60.2 kg
03/02/24 03:47
03/02/24 03:47
PT 18.4 Sec (11.4-14.6) H 02/28/24 11:31
INR 1.55 02/28/24 11:31
APTT 31.2 Sec (23.4-35.0) 02/28/24 11:31
Magnesium 2.0 mg/dl (1.6-2.3) 03/02/24 03:47
Physical Exam
Constitutional: No acute distress and Comfortable
Cardiovascular: Rhythm & rate is regular, Pedal edema is absent, JVD pressure is normal, Systolic murmur absent and Diastolic murmur absent
Respiratory: Respiratory effort normal, Lungs clear to auscul., Wheeze Absent, Crackles Absent and Rhonchi Absent
Neuro/Psych: AO x 3 and Other (4/4 strength in right hand)
Data Reviewed
-
Date of Service: March 02, 2024
[2024-03-02] MEDS: LASIX 40 MG IV (10:16)
[2024-03-02] MEDS: NSS IV (10:19)
[2024-03-02 11:43] LABS: Glucose - Point of Care 150 mg/dl (70-99)
--- NOTE | 2024-03-02 11:44 | PTCARENOTE ---
Pt reassessment unchanged from previous, VSS, NSR, 1Lnc, oob in chair, ambulating in the ramos, pain management, 40IV lasix.
[2024-03-02] MEDS: NOVOLOG FLEXPEN-MODERATE RESISTANCE 1 UNITS SC (12:09)
[2024-03-02] MEDS: FERRLECIT 110 MG IV (12:09)
[2024-03-02] MEDS: ULTRAM 50 MG PO (12:10)
[2024-03-02] MEDS: TYLENOL 1000 MG PO ×2 (14:41→22:07)
[2024-03-02] MEDS: FLEXERIL 5 MG PO (14:41)
--- NOTE | 2024-03-02 15:30 | CM ---
Reviewed chart. Met with Mrs. Quintana to review discharge plans. She states she is feeling okay but has some arm pain. She states she maybe able to go home soon. Prior to admission she resides alone in a first floor condo with one small step to
enter. Her son will spend the first night she is home with her. He resides nearby and will be able to check on her. She also has a neighbor who can check on her also. We reviewed a home visit by the Cardiothoracic Transitional Care Nurse. She is
agreeable to a home visit. Medical work-up in progress. The dsicharge plan is to return home with her family support and a home visit by the Cardiothoracic Transitional Care NUrse when medically stable.
--- NOTE | 2024-03-02 15:47 | PTCARENOTE ---
Pt reassessment unchanged from previous, vss, 1lnc, NSR, pain management, ambulating, Rt IJ Cordis KVO, continue encouraging IS.
[2024-03-02 16:54] LABS: Glucose - Point of Care 149 mg/dl (70-99)
[2024-03-02] MEDS: LIPITOR 10 MG PO (17:40)
--- NOTE | 2024-03-02 21:02 | PTCARENOTE ---
Received patient for 7p-7a shift. Pt AAOx3, without complaints. NSR on security inspector, VSS, 93% 1L n/c. Pt ambulatory to bathroom with 1 person assist. MSI olga, old CT dressing c/d/i, RIJ cordis intact, infusing without complications. Medications
administered as ordered. IS up to 500, encouraged. Pt SOLER, denies cough at this time. Will continue to monitor.
[2024-03-02 22:11] LABS: Glucose - Point of Care 166 mg/dl (70-99)
--- NOTE | 2024-03-02 23:16 | PTCARENOTE ---
Patient reassessed, assessment unchanged from previous. Pt ambulatory in room with 1 person assist. NSR on desk monitor, VSS. Blood glucose 166. Pt c/o L arm pain, states tylenol and neurontin provide relief, repositioning as needed. Will
continue to monitor.
[2024-03-03] VITALS (20 sets, daily range): BP systolic 95–137; BP diastolic 40–71; PULSE 71; O2SAT 90–95; BMI 25.0
--- NOTE | 2024-03-03 00:54 | W.PN.CT ---
Today's Communication / Plan
-
Plan:
-No major issues overnight. Hemodynamically and neurologically intact
-BP has been soft postop, currently on Midodrine, BB held. Placed Flomax on hold as well
-H/H 7.7/23.3 consider at least 1u PRBC
-Wean off of Midodrine
-Postop urinary retention has resolved, Flomax on hold
-Repeat echo yesterday 03/02 showed a well seated bioprosthetic AVR with MG/PG of 22/12 mmHg, LVEF 55-60%, mild TR
-F/U 2-view cxr
-D/C cordis after blood transfusion
-OOB into chair/Ambulate
-Likely home tomorrow
Assessment / Plan
-
s/p Surgical aortic valve replacement with aortic root enlargement and aortoplasty using a bovine pericardial patch [23 mm bioprosthesis] with Dr Goetz on 02/28/24 - POD #5
-
-HLD
-mild pulm HTN note don 01/18/24 cardiac cath
-A1c 6.2
-osteoporosis
-kidney stones s/p lithotripsy x3 2004
-migraines
-L plantar fasciitis
-COPD
-depression / anxiety
-former smoker (quit >10yr ago)
-sinus bradycardia with 1st degree heart block postoperatively
-Acute postop blood loss/anemia (stable)
-Acute postop thrombocytopenia (stable without active bleed)
-Acute postop urinary retention, required Flomax, d/c'd d/t hypotension
-Acute postop hypovolemia with subsequent hypervolemia
-Acute postop atelectasis/pleural effusion
Discussed patient care with: Cardiology, Nursing, Pharmacy and Care Team
Subjective
Procedure
s/p Surgical aortic valve replacement with aortic root enlargement and aortoplasty using a bovine pericardial patch [23 mm bioprosthesis] wtih Dr Goetz on 02/28/24
-
Date of Service: March 03, 2024
C/O left arm paresthesia (likely from positioning during surgery, brachial plexus impingement), otherwise feels well
Objective Data
-
PT 18.4 Sec (11.4-14.6) H 02/28/24 11:31
INR 1.55 02/28/24 11:31
APTT 31.2 Sec (23.4-35.0) 02/28/24 11:31
Vital Signs
Vital Signs
Temp Pulse Resp BP Pulse Ox
98.4 F 68 18 96/44 94
03/03/24 00:21 03/03/24 00:22 03/03/24 00:21 03/03/24 00:22 03/03/24 00:21
CT Intake/Output/Weight
03/02/24 03/02/24 03/03/24
06:59 18:59 06:59
Intake Total 840 / 1010 300 / 350 50 / 350
Output Total 750 / 1675 1100 / 1570 470 / 1570
Balance 90 / -665 -800 / -1220 -420 / -1220
SaO2: 94 (RA)
Physical Exam
-
General: Awake, Oriented and AOx3
Cardiovascular: Regular rate & rhythm, No Murmurs, No Rub and No Gallop
Respiratory: Decreased Breath Sounds
Sternum: Stable
Incision: Clean, Dry, Intact and Dressing Intact
Extremities: Other
Data Reviewed
-
Lab Results: Results Reviewed
Medications: Active Meds Reviewed
Chest X-Ray: Report Reviewed and Image Reviewed
ECG: Report Reviewed and Image Reviewed
[2024-03-03 04:39] LABS: Ionized Calcium 1.16 mMOL/L (1.15-1.33)
[2024-03-03 04:41] LABS: Hematocrit 23.3 % (37.0-47.0); Hemoglobin 7.7 g/dL (12.0-16.0); Mean Corpuscular Volume 90.7 fL (81.0-99.0); Platelet Count 107 10^3/uL (130-400); Red Blood Cell Count 2.57 10^6/uL (4.20-5.40); Red Cell Dist. Width 13.2 % (11.5-14.5); White Blood Cell Count 8.5 10^3/uL (4.8-10.8)
[2024-03-03 04:53] LABS: Blood Urea Nitrogen 20 mg/dl (7-17); Calcium 8.4 mg/dl (8.4-10.2); Carbon Dioxide 37 mmol/L (22-30); Chloride 101 mmol/L (98-107); Estimated Creatinine Clearance 64 ml/min; Glucose 107 mg/dl (70-99); Sodium 138 mmol/L (135-145); eGFR > 60.00
[2024-03-03] MEDS: TYLENOL 1000 MG PO ×3 (05:29→21:08)
--- NOTE | 2024-03-03 05:33 | PTCARENOTE ---
NSR on court recording monitor, VSS. Pt AAOx3, assessment unchanged from previous. Pt ambulated to bathroom, voiding without issues. CHG cloth bath done. Labs drawn and sent. Pt for CXR. RIJ cordis infusing without complications. Will continue to monitor.
[2024-03-03] MEDS: ULTRAM 25 MG PO (06:52)
[2024-03-03 07:26] LABS: Glucose - Point of Care 125 mg/dl (70-99)
[2024-03-03] MEDS: NOVOLOG FLEXPEN-MODERATE RESISTANCE SC ×3 (07:30→16:26)
--- NOTE | 2024-03-03 08:45 | PTCARENOTE ---
Assumed care of patient at 0700. Pt is awake, alert, and oriented. Pt ambulating with standby assistance. Pt with continued complaints of back and left arm pain, PRN Flexeril administered. Pt remains SR with HR 60's-70's. BP 95/45 MAP 58. Pulse
oximetry 93% on room air. Pt tolerating PO diet. Voiding without difficulty in bathroom. 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 Right IJ cordis in place with KVO.
[2024-03-03] MEDS: ProAmatine 10 MG PO ×3 (08:59→16:56)
[2024-03-03] MEDS: FLEXERIL 5 MG PO ×2 (09:00→19:35)
[2024-03-03] MEDS: LEXAPRO 15 MG PO (09:00)
[2024-03-03] MEDS: DIAMOX 125 MG PO (09:00)
[2024-03-03] MEDS: LIDOCAINE 4% PATCH 1 PATCH TOPICAL (09:00)
[2024-03-03] MEDS: NEURONTIN 100 MG PO (09:00)
[2024-03-03] MEDS: PACERONE 200 MG PO ×3 (09:00→21:08)
[2024-03-03] MEDS: MAGNESIUM OXIDE 500 MG PO ×2 (09:00→19:36)
[2024-03-03] MEDS: BACTROBAN 2% OINTMENT 1 APPLIC NASAL (09:00)
[2024-03-03] MEDS: VITAMIN C 250 MG PO (09:00)
[2024-03-03] MEDS: PROTONIX 40 MG PO (09:00)
[2024-03-03] MEDS: LOW STRENGTH ASPIRIN 81 MG PO (09:00)
[2024-03-03] MEDS: SENOKOT-S PO ×2 (09:01→20:00)
[2024-03-03 12:04] LABS: Glucose - Point of Care 110 mg/dl (70-99)
[2024-03-03] MEDS: NSS 500 IV (12:23)
--- NOTE | 2024-03-03 13:00 | PTCARENOTE ---
Repeat type/screen sent to lab. Pt received 1 unit PRBC. Pt remains SR with HR 70's. BP 125/55 MAP 76. Pulse oximetry 94% on room air.
[2024-03-03] MEDS: ULTRAM 50 MG PO ×2 (13:33→19:36)
[2024-03-03] MEDS: FERRLECIT 110 MG IV (13:33)
--- NOTE | 2024-03-03 14:53 | W.PN.CD ---
Today's Communication / Plan
-
Continue postop care as directed by CT surgery.
Await ultrasound of upper extremity which was ordered by CT surgery
Impression / Plan
-
Impression/Plan: 73 y/o female with severe aortic valve stenosis and aortic anatomy that was not accommodating to TAVR admitted for elective SAVR with aortic root enlargement.
s/p #23 Archuleta Inspiris Resilia surgical aortic valve (serial #[id number]) with aortic root enlargement and aortoplasty using a bovine pericardial patch (serial number [id number]), 02/28/[address] Goetz.
-Remains in sinus. Postop care as directed by Dr. Goetz.
-Follow-up echocardiogram with stable gradients and no significant aortic regurgitation. Additional appearance of bruit as well as other findings reviewed with CT surgery.
Left shoulder and left arm discomfort. Patient states she is reported since surgery. Reviewed with surgical team. Suspected musculoskeletal. Suspected related to positioning. Left upper show any ultrasound has been ordered. Additional
assessment and management being directed by CT surgery.
#HLD
-Chronic, stable.
-Continue atovastatin.
Subjective/Interval History:
Left arm discomfort
DATA:
Cardiac Catheterization, 01/18/2024:
CONCLUSIONS:
1. Right dominant circulation with moderate tortuosity in the right coronary system but no coronary artery disease. The RCA has a high, anterior takeoff.
2. Moderately elevated filling pressures (PCWP = 20 mmHg at 56.6 kg).
3. Severe aortic valve stenosis by echocardiography.
4. Mild postcapillary pulmonary hypertension, WHO group 2.
TTE, 01/02/2024:
CONCLUSIONS
Normal left ventricular size and systolic function.
LV ejection fraction is 55-60% .
Severe aortic stenosis.
Mild aortic regurgitation.
Compared to the previous report from 12/30/2022 transaortic gradients have
increased. Previously mean gradient peak gradient of 73 mmHg and a mean
gradient of 46.
Physical Exam
Vital Signs/Labs
Vital Signs
Temp Pulse Resp BP Pulse Ox
98.4 F 77 18 116/65 93
03/03/24 12:20 03/03/24 14:00 03/03/24 12:20 03/03/24 13:41 03/03/24 12:21
03/02/24 03/03/24 03/04/24
06:59 06:59 06:59
Actual Weight 60.2 kg 59.9 kg
03/03/24 04:27
03/03/24 04:27
PT 18.4 Sec (11.4-14.6) H 02/28/24 11:31
INR 1.55 02/28/24 11:31
APTT 31.2 Sec (23.4-35.0) 02/28/24 11:31
Magnesium 2.0 mg/dl (1.6-2.3) 03/03/24 04:27
Physical Exam
Constitutional: No acute distress
Cardiovascular: Rhythm & rate is regular
Respiratory: Wheeze Absent and Rhonchi Absent
GI: Soft
Neuro/Psych: Alert
Data Reviewed
-
Date of Service: March 03, 2024
Medical Decision Making: Reviewed Test Results
EKG: Report Reviewed by me
Medical Tests (PFT, Pathology etc): Report Reviewed by me
Labs: Labs Reviewed by me
[2024-03-03 16:18] LABS: Glucose - Point of Care 114 mg/dl (70-99)
--- NOTE | 2024-03-03 16:18 | PTCARENOTE ---
2 view x-ray completed. US of left arm done at bedside. Pt continues to complain of left shoulder/arm pain. Pt remains SR with HR 60's-70's. BP 121/59 MAP 77. Pulse oximetry 91% on room air.
[2024-03-03] MEDS: NEURONTIN 300 MG PO ×2 (16:56→21:07)
[2024-03-03] MEDS: LIPITOR 10 MG PO (16:56)
[2024-03-03] MEDS: LASIX 40 MG PO (18:28)
[2024-03-03] MEDS: KCL 20 MEQ PO (18:28)
[2024-03-03] MEDS: CALCIUM CHLORIDE 10% SYRINGE 60 MG IV (20:00)
--- NOTE | 2024-03-03 20:21 | PTCARENOTE ---
Assumed care of patient from day shift RN. PATTIO x 3 sitting up in the chair during routine rounds. SR on monitor. Room air 93%. Lungs decreased bilaterally t/o. Dyspnea with exertion, recovers on own. Abdomen soft, voiding independently.
Surgical sites c,d,i. Pulses palpable.
[2024-03-03 21:06] LABS: Glucose - Point of Care 112 mg/dl (70-99)
[2024-03-03] MEDS: VENTOLIN NEBULES 1.25 MG INH (21:29)
--- NOTE | 2024-03-03 22:04 | PTCARENOTE ---
Pt with audible expiratory wheezing after ambulating in room. Unable to clear wheeze with cough. CT PA notified, Neb order obtained;. RT in to treat . Pt states improvement.
--- NOTE | 2024-03-03 23:17 | PTCARENOTE ---
Sleeping soundly during vital sign rounds. Pulse ox while sleeping 88-90%. Placed on 1 L with pulse ox of 95% after. VSS , assessment otherwise unchanged from prior.
[2024-03-04 03:38] VITALS: BP 124/61
[2024-03-04] MEDS: ULTRAM 50 MG PO (03:46)
[2024-03-04 03:47] VITALS: BMI 24.8
[2024-03-04 03:50] LABS: Hematocrit 30.3 % (37.0-47.0); Mean Corpuscular Hgb 29.3 pg (27.0-31.0); Mean Corpuscular Volume 88.9 fL (81.0-99.0); Mean Platelet Volume 10.2 fL (7.4-10.4); Platelet Count 149 10^3/uL (130-400); Red Blood Cell Count 3.41 10^6/uL (4.20-5.40); Red Cell Dist. Width 14.4 % (11.5-14.5); White Blood Cell Count 11.3 10^3/uL (4.8-10.8)
--- NOTE | 2024-03-04 03:50 | PTCARENOTE ---
Ambulating in room at [facility], C/o Lt shoulder pain. States that the ultram is working well for pain control. PRN dose administered. VSS. AM labs and weight obtained. Assessment other johnson unchanged from prior.
--- NOTE | 2024-03-04 04:05 | W.PN.CT ---
Today's Communication / Plan
-
Plan:
-No major issues overnight. Hemodynamically and neurologically intact
-Able to discontinue Midodrine following 1u PRBC yesterday
-LUE paresthesia has resolved
-Cont. gentle diuresis. Resume low dose BB (12.5 mg Toprol XL QD)
-Repeat echo on 03/02 showed a well seated bioprosthetic AVR with MG/PG of 22/12 mmHg, LVEF 55-60%, mild TR
-D/C cordis
-OOB into chair/Ambulate
-Home today
Assessment / Plan
-
Assessment:
s/p Surgical aortic valve replacement with aortic root enlargement and aortoplasty using a bovine pericardial patch [23 mm bioprosthesis] with Dr Goetz on 02/28/24 - POD #5
-
-HLD
-mild pulm HTN note don 01/18/24 cardiac cath
-A1c 6.2
-osteoporosis
-kidney stones s/p lithotripsy x3 2004
-migraines
-L plantar fasciitis
-COPD
-depression / anxiety
-former smoker (quit >10yr ago)
-sinus bradycardia with 1st degree heart block postoperatively
-Acute postop blood loss/anemia (stable)
-Acute postop thrombocytopenia (stable without active bleed)
-Acute postop urinary retention, required Flomax, d/c'd d/t hypotension
-Acute postop hypovolemia with subsequent hypervolemia
-Acute postop atelectasis/pleural effusion
Discussed patient care with: Cardiology, Nursing, Respiratory Therapy, Pharmacy and Care Team
Subjective
Procedure
s/p Surgical aortic valve replacement with aortic root enlargement and aortoplasty using a bovine pericardial patch [23 mm bioprosthesis] wtih Dr Goetz on 02/28/24
-
Date of Service: March 04, 2024
Pt c/o mild incisional pain, states LUE paresthesia has resolved. States feels energized following blood transfusion. Ambulating halls without difficulty
Objective Data
-
Lab Results
03/04/24 03:41
PT 18.4 Sec (11.4-14.6) H 02/28/24 11:31
INR 1.55 02/28/24 11:31
APTT 31.2 Sec (23.4-35.0) 02/28/24 11:31
Vital Signs
Vital Signs
Temp Pulse Resp BP Pulse Ox
97.7 F 59 21 124/61 92
03/04/24 03:49 03/04/24 03:49 03/04/24 03:49 03/04/24 03:38 03/04/24 03:49
CT Intake/Output/Weight
03/03/24 03/03/24 03/04/24
06:59 18:59 06:59
Intake Total 90 / 390 370 / 1000 630 / 1000
Output Total 590 / 1690 600 / 1500 900 / 1500
Balance -500 / -1300 -230 / -500 -270 / -500
SaO2: 92 (RA)
Physical Exam
-
General: Awake, Oriented and AOx3
Cardiovascular: Regular rate & rhythm, No Murmurs, No Rub and No Gallop
Respiratory: Decreased Breath Sounds (at bases, otherwise clear)
Sternum: Stable
Incision: Clean, Dry, Intact and Dressing Intact
Extremities: No Edema
Data Reviewed
-
Lab Results: Results Reviewed
Medications: Active Meds Reviewed
Chest X-Ray: Report Reviewed and Image Reviewed
ECG: Report Reviewed and Image Reviewed
[2024-03-04 04:11] LABS: Blood Urea Nitrogen 16 mg/dl (7-17); Calcium 10.1 mg/dl (8.4-10.2); Carbon Dioxide 32 mmol/L (22-30); Chloride 103 mmol/L (98-107); Estimated Creatinine Clearance 55 ml/min; Glucose 108 mg/dl (70-99); Magnesium 2.1 mg/dl (1.6-2.3); Sodium 141 mmol/L (135-145); eGFR > 60.00
[2024-03-04] MEDS: TYLENOL 1000 MG PO (06:45)
[2024-03-04 07:59] LABS: Glucose - Point of Care 124 mg/dl (70-99)
[2024-03-04] MEDS: SENOKOT-S PO (08:10)
[2024-03-04] MEDS: NOVOLOG FLEXPEN-MODERATE RESISTANCE SC (08:10)
[2024-03-04 08:17] VITALS: BP 107/58
[2024-03-04] MEDS: LASIX 40 MG PO (08:20)
[2024-03-04] MEDS: FLEXERIL 5 MG PO (08:20)
[2024-03-04] MEDS: VITAMIN C 250 MG PO (08:20)
[2024-03-04] MEDS: NEURONTIN 300 MG PO (08:20)
[2024-03-04] MEDS: TOPROL XL 12.5 MG PO (08:21)
[2024-03-04] MEDS: LEXAPRO 15 MG PO (08:21)
[2024-03-04] MEDS: LOW STRENGTH ASPIRIN 81 MG PO (08:21)
[2024-03-04] MEDS: PROTONIX 40 MG PO (08:21)
[2024-03-04] MEDS: LIDOCAINE 4% PATCH 1 PATCH TOPICAL (08:21)
[2024-03-04] MEDS: MAGNESIUM OXIDE 500 MG PO (08:21)
[2024-03-04] MEDS: PACERONE 200 MG PO (08:21)
[2024-03-04] MEDS: KCL 20 MEQ PO (08:21)
--- NOTE | 2024-03-04 08:44 | PTCARENOTE ---
Assumed care of patient at 0700. Pt is awake, alert, and oriented. Pt with improving pain in left shoulder/left arm, PRN Flexeril administered for relief. Pt remains SR with HR 80's. BP 107/58 MAP 74. Pulse oximetry 93% on room air. Pt tolerating PO
diet. Voiding in bathroom without difficulty. 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 Chest tubes sites ELISA. Pt ambulating independently in room without difficulty.
--- NOTE | 2024-03-04 09:39 | W.DCSUMMARY ---
Discharge Summary
Discharge Data
Date of Admission: 02/28/24
Date of Discharge: 03/04/24
Total time spent discharging patient (in min): 60
-
Pending Results: No
Hospital Course
Patient was admitted electively for aortic valve replacement on 02/28/2024. She underwent aortic valve replacement with a bioprosthetic valve as well as root enlargement with Dr. Goetz. Please refer to his separately dictated operative report for
complete details. Postoperatively she was transferred to the intensive care unit on insulin, Precedex, and Cardene infusions. She was extubated at 1625 per protocol.
Postoperative day #1: [place]-Trinh catheter was removed. She was briefly on Levophed overnight which was weaned by the morning of postop day #1. She was given a small fluid bolus of lactated Ringer's with improvement in hemodynamics. She was
transferred to telemetry face.
Postoperative day #2: She was given a little bit more lactated Ringer's this morning 250 cc. Arterial line and Tian catheter were discontinued. She continued to progress with rehab. She began to complain of left upper extremity
pain/paresthesias. This was likely related to intraoperative positioning/musculoskeletal pain.
Postoperative day #3: Pacing wires were pulled as well as chest tubes. She was given IV Lasix as well as started on iron and vitamin C. Flomax was started for urinary retention. This was subsequently held due to low blood pressures. Flexeril was
added for her left arm pain and midodrine was also started.
Postoperative day #4: She was given 1 unit of packed red blood cells. She continued to plan complain of left upper extremity pain. EKG did not show any ischemic changes and blood pressures were the same on both upper extremities. Venous duplex of
the left upper extremity did not demonstrate any deep vein thrombosis. Gabapentin was increased to assist with pain management.
Postoperative day #5: Patient feels great today after the blood. Her left upper extremity pain is essentially resolved. She is ready for discharge today to home.
Discharge Plan
-
Patient Disposition: Home (Routine Discharge)
Discharge Diagnosis/Procedures: Status post surgical aortic valve replacement with aortic root enlargement and aortoplasty using a bovine pericardial patch [23 mm bioprosthesis] with Dr Goetz on 02/28/24
-Aortic stenosis
-Hyperlipidemia
-mild pulmonary hypertension note done 01/18/24 cardiac cath
-Prediabetes
-osteoporosis
-kidney stones status post lithotripsy x3 2004
-migraines
-Left plantar fasciitis
-Chronic obstructive pulmonary disease
-depression / anxiety
-former smoker (quit >10yr ago)
-sinus bradycardia with 1st degree heart block postoperatively
-Acute postoperative blood loss/anemia (stable)
-Acute postoperative thrombocytopenia (stable without active bleed)
-Acute postoperative urinary retention, required Flomax, discontinued due to hypotension
-Acute postoperative hypovolemia with subsequent hypervolemia
-Acute postoperative atelectasis/pleural effusion
Diet: Low Fat, Low Cholesterol and Low Sodium
Activity: No strenuous activity
Driving Restrictions: Not until seen by your Dr
Bathing Restrictions: OK to Shower
Other Services: Cardiac Rehab
Specialty Instructions: Weigh Daily- Call MD for wt gain/loss 3 lbs overnight/5 lbs in 1 week
Activity Restrictions/Additional Instructions:
ACTIVITY:
-No strenuous activity: no heavy lifting, pushing, pulling anything over 15 pounds for one month
-continue to use stairs as tolerated
DRIVING RESTRICTIONS:
-No driving for one month or until approved by your surgeon
WOUND CARE:
-Shower daily. Use soap & water.
-No lotions, creams or powders on incision area.
DIET:
-continue a low fat/low cholesterol diet.
-IF you are diabetic, continue carb controlled diet.
CARDIAC REHAB:
-Please make appointment to start in 5-6 weeks with your local hospital program. (See Cardiac Rehabilitation Discharge Booklet).
SPECIALTY INSTRUCTIONS:
-Weigh yourself daily. Call your physician for any weight gain/loss of 3 lbs overnight or 5 lbs in one week.
-REPORT any clicking noise or uneven appearance of your sternum to your surgeon immediately.
-If you smoke, you are instructed to quit. The [place] smoking hotline phone number is [phone]
Referrals:
CT Transitional Care Nurse [Outside] - in one to two days
(
The Cardiothoracic Transitional Care Nurse will call you to set up a visit in 1-2 days.)
[facility]. Cardiac Rehab [Outside] - 04/03/24 1:00 pm
(Cardiac Rehab Orientation appointment is on April 03, 2024 at 1:00 pm
The Cardiac Rehab gym is located on the first floor of the [facility].)
Shawanda Purcell NP [Family Provider] - in four to six weeks (Please make an appointment in four to six weeks. )
Roc Goetz MD [Active] - 03/29/24 2:30 pm
Prescriptions:
New
furosemide 40 mg Tablet
40 mg PO DAILY 5 Days Qty: 5 0RF
gabapentin 300 mg capsule
300 mg PO TIDPRN PRN (Reason: pain) 14 Days Qty: 42 0RF
metoprolol succinate 25 mg Tablet Extended Release 24 Hr
12.5 mg PO DAILY Qty: 30 2RF
tramadol 25 mg tablet
25 mg PO Q6H PRN (Reason: Pain) Qty: 30 0RF
potassium chloride 20 mEq tablet extended release
20 meq PO DAILY 5 Days Qty: 5 0RF
Continued
multivitamin 1 EACH tablet
1 ea PO QPM
aspirin 81 MG tablet,delayed release (DR/EC)
81 mg PO QPM
simvastatin 20 MG tablet
20 mg PO QPM
rizatriptan 5 MG tablet
5 mg PO PRN PRN (Reason: MIGRAINES)
Advil Cold and Sinus 30-200 mg Tablet
1 tab PO QID PRN (Reason: cold)
vitamin C05-shyes acid 0.5-1 mg Tablet
1 tab PO QPM
d-mannose 500 mg Capsule
1,300 mg PO QPM
Chanca Kimberly
1,600 mg PO QPM
acetaminophen [Tylenol] 325 mg Tablet
325 mg PO DAILY PRN (Reason: pain)
albuterol sulfate 90 mcg/actuation Hfa Aerosol Inhaler
1 puff INHALATION PRN PRN (Reason: SOB)
fluticasone propion-salmeterol [Advair HFA] 115-21 mcg/actuation Hfa Aerosol Inhaler
2 puff INHALATION Q12H
famotidine [Pepcid] 40 mg Tablet
40 mg PO QPM
cholecalciferol (vitamin D3) [Vitamin D3] 25 mcg (1,000 unit) Tablet
25 mcg PO QPM
Azo Bladder Control 300 mg Capsule
1 cap PO PRN PRN (Reason: URINARY SYMPTOMS)
lorazepam 0.5 mg Tablet
0.5 mg PO DAILY PRN (Reason: SLEEP/ANXIETY)
escitalopram oxalate [Lexapro] 10 mg Tablet
15 mg PO DAILY
mecobalamin (vitamin B12) [B12 Active] 1,000 mcg Tablet,Chewable
500 mcg PO QPM
Discharge Orders:
Discharge Patient (As Directed); Ordered 03/04/24
Ordered By: Jamar Mcconnell
Care Plan Goals
Care Plan Goals:
Problem: Readiness for enhanced knowledge related to diagnosis and treatment plan
Goal: Understand your diagnosis and treatment plan needs, including medications if applicable.
Instructions: Know your diagnosis, underlying causes and treatment plan options, including medications if applicable. Consult with your health care team to learn about your diagnosis and treatment plan, including medications if applicable.
Discharge Date and Time
Print Language: INDIAN
[2024-03-04 10:30] VITALS: BP 104/64
[2024-03-04] MEDS: NSS IV (10:59)
--- NOTE | 2024-03-04 12:56 | PTCARENOTE ---
Right IJ cordis removed. Pt showered. Pt's son arrived, reviewed discharge instructions with pt and pt's son. Questions addressed. Peripheral IV removed. Pt stable at discharge. At discharge pt remained SR with HR 60's. Last BP 104/64 MAP 77. Pulse
oximetry 94% on room air.
== END 2024-03-04 12:59 | disposition home or self-care (01) | DRG 220 ==
LOC: CVICU 04:54
PROVIDERS: Anesthesiology; Nurse Practitioner; ADMITTING PHYSICIAN Thoracic Surgery (Cardiothoracic Vascular Surgery); FAMILY PHYSICIAN Internal Medicine; OTHER PHYSICIAN Internal Medicine Pulmonary Disease
PROC: B24BZZ4 Ultrasonography of Heart with Aorta, Transesophageal (ICD-10-PCS; 2024-02-28)
PROC: 02RF08Z Replacement of Aortic Valve with Zooplastic Tissue, Open Approach (ICD-10-PCS; 2024-02-28)
PROC: 5A1221Z Performance of Cardiac Output, Continuous (ICD-10-PCS; 2024-02-28)
PROC: 02UX08Z Supplement Thoracic Aorta, Ascending/Arch with Zooplastic Tissue, Open Approach (ICD-10-PCS; 2024-02-28)
PROC: 30233N1 Transfusion of Nonautologous Red Blood Cells into Peripheral Vein, Percutaneous Approach (ICD-10-PCS; 2024-03-03)
DX: I35.0 Nonrheumatic aortic (valve) stenosis (principal); D62 Acute posthemorrhagic anemia; J98.11 Atelectasis; J90 Pleural effusion, not elsewhere classified; I10 Essential (primary) hypertension; M81.0 Age-related osteoporosis without current pathological fracture; F41.9 Anxiety disorder, unspecified; F32.A Depression, unspecified; E55.9 Vitamin D deficiency, unspecified; I27.20 Pulmonary hypertension, unspecified; R73.03 Prediabetes; J44.9 Chronic obstructive pulmonary disease, unspecified; D69.59 Other secondary thrombocytopenia; R33.8 Other retention of urine; I95.9 Hypotension, unspecified; E86.1 Hypovolemia; E87.70 Fluid overload, unspecified; E78.00 Pure hypercholesterolemia, unspecified; I44.0 Atrioventricular block, first degree; Z79.82 Long term (current) use of aspirin; Z79.899 Other long term (current) drug therapy; Z82.49 Family history of ischemic heart disease and other diseases of the circulatory system; Z87.891 Personal history of nicotine dependence
CPT/HCPCS: 88305; 88311; 93308; 36415; 71045; 71046; 80048; 80053; 81003; 81015; 82248; 82330; 82565; 82805; 82947; 82962; 83036; 83735; 84132; 84302; 84520; 85014; 85018; 85025; 85027; 85049; 85610; 85730; 86850; 86900; 86901; 86920; 87070; 93005; 93312; 93320; 93325; 93880; 93971; 94002; 94640; J2916; P9016; P9045

== ENCOUNTER → 2024-03-08 14:38 | Outpatient (REF) | payer MEDICARE, SELFPAY ==
[2024-03-08 15:02] LABS: % Basophils 0.6 % (0-2); % Eosinophils 2.9 % (0-6); % Immature Granulocytes 0.6 % (0-0.5); % Monocytes 14.7 % (1.7-9.3); % Neutrophils 48.2 % (42.2-75.2); Absolute Basophils 0.1 10^3/uL (0-0.2); Absolute Eosinophils 0.3 10^3/uL (0-0.7); Absolute Immature Granulocytes 0.1 10^3/uL (0-0.05); Absolute Lymphocytes 3.3 10^3/uL (1.2-3.4); Absolute Monocytes 1.5 10^3/uL (0.1-0.6); Absolute Neutrophils 4.8 10^3/uL (1.4-6.5); Hematocrit 29.7 % (37.0-47.0); Hemoglobin 9.9 g/dL (12.0-16.0); Mean Corp Hgb Conc. 33.3 g/dL (33.0-37.0); Mean Corpuscular Hgb 29.8 pg (27.0-31.0); Mean Corpuscular Volume 89.5 fL (81.0-99.0); Mean Platelet Volume 9.7 fL (7.4-10.4); Nucleated Red Blood Cells % 0 %; Platelet Count 253 10^3/uL (130-400); Red Blood Cell Count 3.32 10^6/uL (4.20-5.40); Red Cell Dist. Width 13.8 % (11.5-14.5); White Blood Cell Count 9.9 10^3/uL (4.8-10.8)
[2024-03-08 15:24] LABS: Blood Urea Nitrogen 11 mg/dl (7-17); Calcium 9.2 mg/dl (8.4-10.2); Carbon Dioxide 28 mmol/L (22-30); Chloride 100 mmol/L (98-107); Glucose 126 mg/dl (70-99); Potassium 4.5 mmol/L (3.5-5.1); Sodium 136 mmol/L (135-145); eGFR > 60.00
== END ==
LOC: RAD 14:38
PROVIDERS: ATTENDING PHYSICIAN Thoracic Surgery (Cardiothoracic Vascular Surgery); FAMILY PHYSICIAN Internal Medicine
DX: R06.02 Shortness of breath (principal); Z87.09 Personal history of other diseases of the respiratory system
CPT/HCPCS: 36415; 71046; 80048; 85025

== ENCOUNTER 2024-03-09 15:31 | Inpatient (IN) | payer MEDICARE, SELFPAY ==
[2024-03-09] VITALS (7 sets, daily range): BP systolic 96–129; BP diastolic 73–97; BMI 24.8; BMI 24.3
[2024-03-09] MEDS: DUONEB 3 ML INH ×3 (11:52→17:25)
[2024-03-09] MEDS: DECADRON 10 MG IV (11:52)
[2024-03-09 12:20] LABS: Hemoglobin 10.4 g/dL (12.0-16.0); Mean Corp Hgb Conc. 32.5 g/dL (33.0-37.0); Mean Corpuscular Hgb 29.6 pg (27.0-31.0); Mean Corpuscular Volume 91.2 fL (81.0-99.0); Mean Platelet Volume 9.6 fL (7.4-10.4); Platelet Count 265 10^3/uL (130-400); Red Blood Cell Count 3.51 10^6/uL (4.20-5.40); Red Cell Dist. Width 13.7 % (11.5-14.5); White Blood Cell Count 9.7 10^3/uL (4.8-10.8)
[2024-03-09 12:37] LABS: ALT (SGPT) 20 U/L (0-35); AST (SGOT) 24 U/L (14-36); Albumin 3.9 g/dl (3.5-5.0); Alkaline Phosphatase 86 U/L (38-126); Blood Urea Nitrogen 11 mg/dl (7-17); Carbon Dioxide 33 mmol/L (22-30); Chloride 99 mmol/L (98-107); Estimated Creatinine Clearance 64 ml/min; Glucose 111 mg/dl (70-99); Potassium 4.5 mmol/L (3.5-5.1); Sodium 136 mmol/L (135-145); Total Bilirubin 0.7 mg/dl (0.2-1.3); eGFR > 60.00
[2024-03-09 12:44] LABS: NT-proBNP 1620 pg/ml
--- NOTE | 2024-03-09 13:09 | ED.GENMED ---
History of Present Illness
General
Chief Complaint: Breathing Problem
Source: patient
Exam Limitations: none
Time Seen by Provider: 03/09/24 11:23
Nursing documentation reviewed up to this point in time: agreed with
History of Present Illness
History of Present Illness:
73-year-old female with past medical history of aortic stenosis, hyperlipidemia, COPD, recent aortic valve repair replacement 10 days ago presenting to the emergency department today with concerns of worsening cough and wheeze and shortness of
breath over the past few days. Does have a history of COPD. This does feel similar.
Past History
Past History
ED Past Medical History: Other (Patient has a history of kidney stone )
ED Past Surgical History: Other (Patient has a history of lithotripsy )
Social History
Tobacco: Non-smoker
Alcohol: Occasional
Drug: None
Personal: Single
Living: alone
Employment: Employed
Review of Systems
Review of Systems
Allergies reviewed?: Yes
All Other Systems: ROS reviewed and negative except as documented in HPI and ROS
Phy Exam
Physical Exam
Physical Exam:
GENERAL: Alert , in no apparent distress
EYE: pupils equal and reactive
NECK: Supple, no significant adenopathy.
ENT: o/p clr, mmm.
CARDIAC: Regular rate and rhythm .
LUNGS: Diffuse wheezing diffuse diminished lung sounds with forced exhalation significant wheezing diffusely
Abdomen; soft nontender
NEUROLOGICAL: Alert and oriented, no focal neuro deficits
SKIN: Warm and dry, skin intact.
MUSCULOSKELETAL: No edema, well perfused.
PSYCH: Normal and appropriate interaction.
Scores
Heart Failure Risk
Heart Failure Risk Score: Not Applicable
Course
Orders/Labs/Results
Orders:
Orders
03/09/24 11:12
Electrocardiogram (*1) Urgent
Reason for Study: Chest Pain
EKG- Treatment ONCE
03/09/24 11:25
Chest [CR Chest - 2 Views ] Urgent
Comment:
Reason For Exam: cough sob, recent valve repair
03/09/24 11:47
Cardiac Monitoring- Treatment ONCE
Dexamethasone Sod Phosphate [Decadron] 10 mg IV NOW STA
Ipratropium/Albuterol Sulfate [Duoneb] 3 ml INH R NOW STA
03/09/24 12:02
Complete Blood Count/No Diff Urgent
Comprehensive Metabolic Panel Urgent
NT-proBNP Urgent
03/09/24 13:22
Ipratropium/Albuterol Sulfate [Duoneb] 3 ml .ROUTE .STK-MED ONE
03/09/24 13:23
Ipratropium/Albuterol Sulfate [Duoneb] 3 ml INH R NOW ONE
Abnormal Lab Results
03/09/24
12:02
RBC 3.51 L 10^6/uL
(4.20-5.40)
Hgb 10.4 L g/dL
(12.0-16.0)
Hct 32.0 L %
(37.0-47.0)
MCHC 32.5 L g/dL
(33.0-37.0)
Carbon Dioxide 33 H mmol/L
(22-30)
Glucose 111 H mg/dl
(70-99)
Total Protein 6.0 L g/dl
(6.3-8.2)
03/09/24 12:02
03/09/24 12:02
Vital Signs
Initial and Last Documented VS:
Initial Vital Signs
Temp Pulse Resp BP Pulse Ox
98.2 F 102 20 96/75 92
03/09/24 10:58 03/09/24 10:58 03/09/24 10:58 03/09/24 10:58 03/09/24 10:58
Last Documented Vital Signs
Temp Pulse Resp BP Pulse Ox
98.2 F 93 31 128/97 91
03/09/24 10:58 03/09/24 12:20 03/09/24 12:04 03/09/24 12:19 03/09/24 14:30
MDM/Problems Addressed
MDM/Problems Addressed:
73-year-old female presenting to the emergency department today with concerns of shortness of breath cough worsening over the past few days. Upon arrival here she had initial pulse ox in the low 90s slightly tachycardic blood pressure slightly low
vital signs improving after receiving DuoNeb and steroid. Patient had significant wheezing likely consistent with COPD. BNP was ordered and 1600 x-ray without signs of pulmonary edema. EKG is unchanged. Patient lives that symptoms feel somewhat
improved however still with very significant diffuse wheezing. Pulse ox with exertion is dropping into the 80s plan to admit considering the patient had recent surgery significant COPD exacerbation.
*Critical Care Note
Total Time (30-74mins, 75-104mins- exclusive of procedures): Not Applicable
ED Attending Note
-
Portions of this chart may have been created with voice recognition software.� Occasional wrong word or��sound alike� substitutions may have occurred due to the inherent limitations of voice recognition software.
Discharge Plan
Departure
Patient Disposition: Admit
Date of Disposition: 03/09/24
Time of Disposition: 14:57
Admit to: Med/Surg
Admit to doctor: Varghese
Presentation/result/management discussed w/ accepting MD/DO: Hospitalist
Patient with high blood pressure during this ER visit?: No
Condition: Good
Covid-19: Not Applicable
Discharge Problem:
COPD exacerbation
Prescriptions:
No Action
multivitamin 1 EACH tablet
1 ea PO QPM
aspirin 81 MG tablet,delayed release (DR/EC)
81 mg PO QPM
simvastatin 20 MG tablet
20 mg PO QPM
rizatriptan 5 MG tablet
5 mg PO PRN PRN (Reason: MIGRAINES)
Advil Cold and Sinus 30-200 mg Tablet
1 tab PO QID PRN (Reason: cold)
vitamin [id number] acid 0.5-1 mg Tablet
1 tab PO QPM
d-mannose 500 mg Capsule
1,300 mg PO QPM
[place]
1,600 mg PO QPM
acetaminophen [Tylenol] 325 mg Tablet
325 mg PO DAILY PRN (Reason: pain)
albuterol sulfate 90 mcg/actuation Hfa Aerosol Inhaler
1 puff INHALATION PRN PRN (Reason: SOB)
fluticasone propion-salmeterol [Advair HFA] 115-21 mcg/actuation Hfa Aerosol Inhaler
2 puff INHALATION Q12H
famotidine [Pepcid] 40 mg Tablet
40 mg PO QPM
cholecalciferol (vitamin D3) [Vitamin D3] 25 mcg (1,000 unit) Tablet
25 mcg PO QPM
Azo Bladder Control 300 mg Capsule
1 cap PO PRN PRN (Reason: URINARY SYMPTOMS)
lorazepam 0.5 mg Tablet
0.5 mg PO DAILY PRN (Reason: SLEEP/ANXIETY)
escitalopram oxalate [Lexapro] 10 mg Tablet
15 mg PO DAILY
mecobalamin (vitamin B12) [B12 Active] 1,000 mcg Tablet,Chewable
500 mcg PO QPM
furosemide 40 mg Tablet
40 mg PO DAILY 5 Days Qty: 5 0RF
gabapentin 300 mg capsule
300 mg PO TIDPRN PRN (Reason: pain) 14 Days Qty: 42 0RF
metoprolol succinate 25 mg Tablet Extended Release 24 Hr
12.5 mg PO DAILY Qty: 30 2RF
potassium chloride 20 mEq tablet extended release
20 meq PO DAILY 5 Days Qty: 5 0RF
tramadol 50 mg tablet
25 mg PO Q6H PRN (Reason: pain) Qty: 15 0RF
Referrals:
Shawanda Purcell NP [Family Provider] -
Interventions
Interventions:
*Risk Screen - Suicide Last Done: 03/09/24 10:58
*General Assessment Last Done: 03/09/24 10:58
*Neglect/Abuse Screening Last Done: 03/09/24 10:58
ED- Cardiac Assessment Last Done: 03/09/24 11:08
ED- Pulmonary Assessment Last Done: 03/09/24 11:08
Discharge Date and Time
Print Language: ESTONIAN
--- NOTE | 2024-03-09 15:02 | HPS.HSE ---
Family Physician
-
Family Physician: Shawanda Purcell
Chief Complaint
-
Wheezing
Cough
History of Present Illness
73-year-old female with past medical history of aortic stenosis, hyperlipidemia, COPD, recent aortic valve repair replacement 10 days ago presenting to the emergency department today with concerns of worsening cough and wheeze since Tuesday. It
progressively got worse yesterday. Stated white sputum production at times. Patient denied any runny nose, congestion. Patient denied any fever, chills, chest pain, short of breath. patient denied any headache, dizziness, syncopal episode. She
denied any abdominal pain, nausea, vomiting, diarrhea. Patient denied dysuria hematuria.
Chest x-ray with no acute disease. At present she is oxygenating 90-98 on room air. Patient received dexamethasone and nebs in the ER. admitting for further management
Medical History
Past Medical History
Past Medical History: Reports Other
Additional Past Medical History:
Osteoporosis
Calculus of kidney
Hyperlipidemia
Lung granuloma
Hematuria
Anxiety
Aortic valve stenosis
GERD
Depression
Past Surgical History: Reports Other
Additional Past Surgical History:
Tonsillectomy
Tubularization
Lithotripsy
Aortic valve replacement
Social History
Tobacco: Former Smoker
Alcohol: None
Drug: None
Personal: Single
Living: Alone
Family History
Family History: Not pertinent
Allergies / Home Medications
Allergies reflects when Allergies were last updated in [employer].
Home Medications with original date entered in [employer]
Allergy/Medication List:
Allergies
Allergy/AdvReac Type Severity Reaction Status Date / Time
Sulfa (Sulfonamide Allergy Rash Verified 03/09/24 10:58
Antibiotics)
Home Medications
aspirin 81 mg tablet,delayed release 81 mg PO QPM 03/07/10
simvastatin 20 mg tablet 20 mg PO QPM 03/07/10
rizatriptan 5 mg tablet 5 mg PO DAILYPRN PRN MIGRAINES 08/26/16
albuterol sulfate 90 mcg/actuation aerosol inhaler 1 puff inhalation R Q4HPRN PRN SOB 01/18/24
fluticasone propionate 115 mcg-salmeterol 21 mcg/actuation HFA inhaler (Advair HFA) 2 puff inhalation R BID 01/18/24
cholecalciferol (vitamin D3) 25 mcg (1,000 unit) tablet (Vitamin D3) 25 mcg PO QPM 02/20/24
escitalopram oxalate 10 mg tablet (Lexapro) 15 mg PO DAILY 02/20/24
famotidine 40 mg tablet (Pepcid) 40 mg PO QPM 02/20/24
metoprolol succinate 25 mg tablet,extended release 24 hr 12.5 mg (1/2 x 25 mg) PO DAILY #30 tabs 03/04/24
cyclobenzaprine 5 mg tablet 5 mg PO TID 03/09/24
gabapentin 300 mg capsule 300 mg PO TID 03/09/24
tramadol 50 mg tablet 25 mg PO Q6HPRN PRN MODERATE pain 03/09/24
Review of Systems
-
Constitutional: Reports No Symptoms
EENT: Reports No Symptoms
Respiratory: Reports Cough
Cardiac: Reports No Symptoms
Abdomen/GI: Reports No Symptoms
: Reports No Symptoms
Musculoskeletal: Reports No Symptoms
Skin: Reports No Symptoms
Neurological: Reports No Symptoms
Endocrine: Reports No Symptoms
Hematologic/Lymphatic: Reports No Symptoms
Psych: Reports No Symptoms
Physical Exam
Vital Signs
Vital Signs
Temp Pulse Resp BP Pulse Ox
98.2 F 93 31 128/97 91
03/09/24 10:58 03/09/24 12:20 03/09/24 12:04 03/09/24 12:19 03/09/24 14:30
Physical Exam
General: Well Developed, Well Nourished and No Apparent Distress
HEENT: NormoCephalic, Moist mucous membranes and Atraumatic
Respiratory: Decreased Breath Sounds
Cardiac: S1/S2 and Regular Rhythm; No Murmur or Rub
GI: Soft, Non Tender, Non Distended and Normal Bowel Sounds; No Organomegaly
Rectal: Deferred by Provider
Musculoskeletal: No Clubbing, No Cyanosis and No Edema
Skin: No Rash
Neuro: AO x 3 and Nonfocal/grossly intact
Psych: Calm
Laboratory Results
-
03/09/24 12:02
03/09/24 12:02
Laboratory Results
Total Bilirubin 0.7 mg/dl (0.2-1.3) 03/09/24 12:02
AST 24 U/L (14-36) 03/09/24 12:02
ALT 20 U/L (0-35) 03/09/24 12:02
Alkaline Phosphatase 86 U/L (38-126) 03/09/24 12:02
Data Reviewed
-
Diagnostic Radiology: Report Reviewed by me
Lab Data: Labs Reviewed by me
Impression/Plan
-
# Cough/wheezing COPD exacerbation
-Nebs as needed for short of breath and wheezing
-Decadron 4 Mg IV every 8 hours
-Nebs ATC and as needed for short of breath and wheezing
-Continue supplemental oxygen to keep sat greater than 92
-Wean as tolerated
-Chest x-ray with no acute cardiopulmonary process
-Mucinex for cough
-Zithromax 500mg daily
# History of aortic valve replacement 10 days ago
-CT surgeon consulted
# Anemia likely postop
-Hemoglobin stable at 10.4
-No active bleeding
-Continue to monitor
# Depression/anxiety
-Citalopram continued
# GERD
-PPI continued
# Hyperlipidemia
-Statin continued
# Essential hypertension
-Metoprolol continued with parameters.
# DVT prophylaxis
-Lovenox subcu
# CODE STATUS
-Full code
--- NOTE | 2024-03-09 15:32 | W.PN.UPDATE ---
Update Note
Progress Note Update
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
She has also noticed white sputum.
Patient denied to fever/chills, chest pain, etc. She chest wall surgical incision site appeared clean.
Her pulse ox on RA is at 90-98% on room air. She received dexamethasone and nebs in the ER. Chest x-ray without acute disease.
A/P:
# Cough/wheezing likely due to COPD exacerbation
Chest x-ray with no acute cardiopulmonary process
Check Procal
Cont DuoNebs ATC and PRN
Cont Decadron 4 mg IV every 12 hours
Zithromax 500mg daily
Mucinex for cough
Check walking pulse ox prior to discharge
# History of aortic valve replacement [address] surgeon informed
# Anemia likely postop
Hemoglobin stable at 10.4
No active bleeding
Continue to monitor
# Depression/anxiety
Citalopram continued
# GERD
PPI continued
# Hyperlipidemia
Statin continued
# Essential hypertension
Metoprolol continued with parameters.
DVT prophylaxis: Lovenox subcu
CODE STATUS: Full code
--- NOTE | 2024-03-09 16:20 | CONSULT.CT ---
Consultation
-
Date/Time Consultation Requested: 03/09
Date/Time Consultation Performed: 03/09
Requesting Provider: Caleb Villagran
Performing Provider: Lety MULLER for Dr Pete Packer
Reason for Consultation: cough/dyspnea s/p AVR w/root enlargement 02/28/24
Patient History
Physicians
Family Physician: Shawanda Purcell
Outpatient Molding Press Operator: Ruchi Ross
History of Present Illness
Rashida Quintana is a 73-year-old female known to the cardiac surgery service from recent elective aortic valve replacement with #23 Inspiris Resilia tissue valve and root enlargement by Dr. Roc Goetz on 02/28/2024. Patient had an uneventful
postoperative course. She received 1 unit of packed red blood cells for postop anemia. Postprocedure TTE on 03/03, reported left ventricular ejection fraction of 55-60%. Aortic valve gradients were 22mm/12mmHg without aortic insufficiency.
Patient was discharged home on 03/06. She presented to the emergency room 03/09 with complaint of productive cough of whitish sputum and wheeze that has been worsening since Tuesday. Patient denies fever, chills, weight gain, or lower extremity
edema. Pro-BNP 1620. O2 sats 86-91% on room air with negative COVID screen. Patient received dexamethasone 10mg IV and nebulizer treatments with improvement of symptoms.
Past Medical History
Past Medical History: COPD, Hypercholesterolemia, Valvular Disease (aortic stenosis) and Other (migraine, nephrolithiasis s/p lithotripsy x 3, osteoporosis, anxiety/depression)
Past Surgical History
Past Surgical History: Valve (AVR #23mm Insiris w/root enlargement 02/28/24 (Dr. Goetz))
Family History
Mother: N/A
Father: N/A
Social History
Alcohol: Occasional
Drug: None
Tobacco: Former Smoker (quit >10 years ago)
Personal:
Living: Alone
Employment: Retired
Allergies
Allergy/AdvReac Type Severity Reaction Status Date / Time
Sulfa (Sulfonamide Allergy Rash Verified 03/09/24 10:58
Antibiotics)
Home Medications
�Medication �Instructions �Recorded �Confirmed �Type
aspirin 81 mg tablet,delayed 81 mg PO QPM 03/07/10 03/09/24 History
release
simvastatin 20 mg tablet 20 mg PO QPM 03/07/10 03/09/24 History
rizatriptan 5 mg tablet 5 mg PO DAILYPRN PRN MIGRAINES 08/26/16 03/09/24 History
albuterol sulfate 90 mcg/actuation 1 puff inhalation R Q4HPRN PRN SOB 01/18/24 03/09/24 History
aerosol inhaler
fluticasone propionate 115 2 puff inhalation R BID 01/18/24 03/09/24 History
mcg-salmeterol 21 mcg/actuation
HFA inhaler (Advair HFA)
cholecalciferol (vitamin D3) 25 25 mcg PO QPM 02/20/24 03/09/24 History
mcg (1,000 unit) tablet (Vitamin
D3)
escitalopram oxalate 10 mg tablet 15 mg PO DAILY 02/20/24 03/09/24 History
(Lexapro)
famotidine 40 mg tablet (Pepcid) 40 mg PO QPM 02/20/24 03/09/24 History
metoprolol succinate 25 mg 12.5 mg (1/2 x 25 mg) PO DAILY #30 03/04/24 03/09/24 Rx
tablet,extended release 24 hr tabs
cyclobenzaprine 5 mg tablet 5 mg PO TID 03/09/24 03/09/24 History
gabapentin 300 mg capsule 300 mg PO TID 03/09/24 03/09/24 History
tramadol 50 mg tablet 25 mg PO Q6HPRN PRN MODERATE pain 03/09/24 03/09/24 History
Review of Systems
-
History Source: Patient
General: Reports No Symptoms
HEENT: Reports No Symptoms
Respiratory: Reports Cough and Other (wheeze)
Cardiac: Reports No Symptoms
Abdomen/GI: Reports No Symptoms
: Reports No Symptoms
Musculoskeletal: Reports Myalgias (chest 'sore' from coughing)
Skin: Reports No Symptoms
Neurological: Reports No Symptoms
Vascular: Reports No Symptoms
Physical Exam
Vital Signs
Temp 98.2 F 03/09/24 10:58
Temp route: Oral 03/09/24 10:58
Pulse 93 03/09/24 12:20
Resp Rate 31 03/09/24 12:04
Blood pressure 128/97 03/09/24 12:19
Blood pressure extremity used: Right upper arm 03/09/24 10:58
Position: Sitting 03/09/24 10:58
MAP (cuff-Brittany Monitor) 108 03/09/24 12:19
SaO2 91 03/09/24 14:30
Oxygen Mode of Delivery Room air 03/09/24 10:58
Can the patient verbally communicate their pain? Yes 03/09/24 10:58
Actual Weight 59.4 kg 03/09/24 11:08
Body Mass Index (BMI) 24.8 03/09/24 11:08
Labs
03/09/24 12:02
03/09/24 12:02
Rli-S-Oepdeapztnd Pept 1620 pg/ml 03/09/24 12:02
Exam
General: Well Developed, Well Nourished and Comfortable
HEENT: Normocephalic, Anicteric, Moist Mucous Membranes and PERRLA
Respiratory: Clear
Cardiac: S1/S2, Regular Rhythm and Other (Median sternotomy is clean, dry, intact)
GI: Soft, Non Tender, Non Distended and Normal Bowel Sounds
Rectal: Deferred by Provider
Skin: Warm and Dry
Neuro: AO x 3, No Motor Deficits and Nonfocal/Grossly Intact
Assessment / Plan
-
73-year-old female status post recent AVR with root enlargement (02/28/2024) and normal LV function on pre-discharge TTE, presents with worsening cough and wheeze c/w COPD exacerbation
- Stable from cardiac standpoint without dysrhythmia or murmur, and sternotomy without evidence of infection
- Plan per primary team
- will follow along
Data Reviewed
-
EKG: Report Reviewed by me and Discussed with Physician
Radiology: Report Reviewed by me and Discussed with Physician
Labs: Labs Reviewed by me and Discussed with Physician
[2024-03-09] MEDS: ZITHROMAX INFUSION 250 IV (16:29)
[2024-03-09 16:31] LABS: COVID-19 Antigen Negative (Negative)
[2024-03-09 16:50] LABS: Procalcitonin < 0.05 ng/ml (0.0-0.25)
--- NOTE | 2024-03-09 17:08 | PTCARENOTE ---
pt presents from ED via stretcher. pt is AAO*3, Vss, denies any pain. pt is omfortable states feeling better. son at the bedside updated. pt oriented to the room. call marcos within the reach, plan of care ongoing.
[2024-03-09] MEDS: NEURONTIN 300 MG PO ×2 (17:25→21:07)
[2024-03-09] MEDS: ASPIR LOW (ENTERIC COATED) 81 MG PO (17:25)
[2024-03-09] MEDS: FLEXERIL 5 MG PO ×2 (17:25→21:07)
[2024-03-09] MEDS: VITAMIN D3 (cholecalciferol) 25 MCG PO (17:25)
[2024-03-09] MEDS: LOVENOX 40 MG SC (17:26)
[2024-03-09] MEDS: PEPCID 40 MG PO (17:26)
[2024-03-09] MEDS: LIPITOR 10 MG PO (17:26)
[2024-03-09] MEDS: DUONEB INH (18:05)
[2024-03-09] MEDS: MUCINEX 600 MG PO (21:07)
[2024-03-09] MEDS: DECADRON 4 MG IV (23:26)
[2024-03-10] MEDS: DUONEB 3 ML INH ×2 (07:21→11:31)
[2024-03-10 07:23] VITALS: BP 121/73
[2024-03-10 07:37] LABS: % Basophils 0.1 % (0-2); % Immature Granulocytes 0.6 % (0-0.5); % Lymphocytes 34.3 % (20.5-51.1); % Monocytes 1.9 % (1.7-9.3); % Neutrophils 63.1 % (42.2-75.2); Absolute Immature Granulocytes 0.1 10^3/uL (0-0.05); Absolute Lymphocytes 5.1 10^3/uL (1.2-3.4); Absolute Monocytes 0.3 10^3/uL (0.1-0.6); Absolute Neutrophils 9.3 10^3/uL (1.4-6.5); Hematocrit 32.3 % (37.0-47.0); Hemoglobin 10.4 g/dL (12.0-16.0); Mean Corp Hgb Conc. 32.2 g/dL (33.0-37.0); Mean Platelet Volume 9.9 fL (7.4-10.4); Nucleated Red Blood Cells % 0 %; Platelet Count 350 10^3/uL (130-400); Red Blood Cell Count 3.59 10^6/uL (4.20-5.40); Red Cell Dist. Width 13.5 % (11.5-14.5); White Blood Cell Count 14.7 10^3/uL (4.8-10.8)
[2024-03-10 07:45] LABS: Blood Urea Nitrogen 17 mg/dl (7-17); Calcium 9.9 mg/dl (8.4-10.2); Carbon Dioxide 28 mmol/L (22-30); Chloride 101 mmol/L (98-107); Estimated Creatinine Clearance 64 ml/min; Glucose 218 mg/dl (70-99); Potassium 4.6 mmol/L (3.5-5.1); Sodium 138 mmol/L (135-145); eGFR > 60.00
--- NOTE | 2024-03-10 08:23 | W.PN.HOSP.TC ---
Addendum entered and electronically signed by Jody Prakash MD 03/10/24 11:42:
total DC time 35 min
Original Note:
Today's Communication/Plan
-
see A/P
Assessment / Plan
Assessment / Plan
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
She has also noticed white sputum.
Patient denied to fever/chills, chest pain, etc. She chest wall surgical incision site appeared clean.
Her pulse ox on RA is at 90-98% on room air. She received dexamethasone and nebs in the ER. Chest x-ray without acute disease.
A/P:
# Mild Cough likely due to COPD exacerbation
Chest x-ray with no acute cardiopulmonary process
Procal negative
Cont DuoNebs ATC and PRN
Decadron 4 mg IV every 12 hours -> PO prednisone 40 mg x5 days
Zithromax 500mg daily x3 days
Mucinex for cough
Check walking pulse ox prior to discharge
# History of aortic valve replacement [address] surgeon informed
# Anemia likely postop
Hemoglobin stable at 10.4
No active bleeding
Continue to monitor
# Depression/anxiety
Citalopram continued
# GERD
PPI continued
# Hyperlipidemia
Statin continued
# Essential hypertension
Metoprolol continued with parameters.
DVT prophylaxis: Lovenox subcu
CODE STATUS: Full code
Anticipated Discharge: Today
Subjective/Interval History
-
Date of Service: March 10, 2024
Objective Data
-
Labs:
Laboratory Results
03/10/24
06:51
WBC 14.7 H
Hgb 10.4 L
Hct 32.3 L
Plt Count 350 D
Sodium 138
Potassium 4.6
Chloride 101
Carbon Dioxide 28
BUN 17
Creatinine 0.6
Glucose 218 H
Calcium 9.9
Vital Signs:
Vital Signs
Temp Pulse Resp BP Pulse Ox
36.5 C 99 16 103/74 97
03/09/24 23:41 03/10/24 07:25 03/10/24 07:25 03/09/24 23:41 03/10/24 07:25
Review of Systems
-
All other systems: Reviewed and negative
Respiratory: Denies Trouble Breathing
Physical Exam
-
General: Well Developed, Well Nourished, No Apparent Distress, Comfortable and Conversant; Negative Respiratory Distress
HEENT: Normocephalic, Atraumatic, Nose Appears Normal and Ears Appear Normal; Negative Oxygen
Respiratory: Clear to Auscultation and Non Labored Respirations; Negative Wheezes or Accessory Resp Muscle Use
Cardiac: Regular Rhythm and S1/S2
GI: Soft, Nontender, Nondistended and Normal Bowel Sounds
Skin: Warm and Dry
Neuro: Awake, Alert, Oriented, AO x 3 and Nonfocal/Grossly Intact
Psych: Calm and Intact Judgement/Insight
Data Reviewed
-
Labs: Labs Reviewed by me
[2024-03-10 09:08] VITALS: O2SAT 95; O2SAT 97
[2024-03-10] MEDS: LEXAPRO 15 MG PO (09:30)
[2024-03-10] MEDS: FLEXERIL 5 MG PO (09:31)
[2024-03-10] MEDS: MUCINEX 600 MG PO (09:31)
[2024-03-10] MEDS: NEURONTIN 300 MG PO (09:31)
[2024-03-10] MEDS: TOPROL XL 12.5 MG PO (09:32)
--- NOTE | 2024-03-10 10:35 | CM ---
Patient seen bedside, initial assessment completed. Patient resides independently in a one story condo, one small step to enter. 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 Patient denies SNF history, reports she will be starting
outpatient therapy in a few weeks. Patient confirms PCP Shawanda Purcell, pharmacy [facility] in [place], confirms prescription coverage. Patient denies food insecurities at home. Patient reports she has transportation home today, denies needs upon
discharge. CM will continue to follow for all discharge planning needs.
Plan; home no needs.
[2024-03-10] MEDS: DECADRON 4 MG IV (11:29)
--- NOTE | 2024-03-10 11:36 | W.DCSUMMARY ---
Discharge Summary
Discharge Data
Date of Admission: 03/09/24
Date of Discharge: 03/10/24
-
Pending Results: No
Hospital Course
Principal Diagnosis:
Mild Cough likely due to chronic obstructive pulmonary disease (COPD) exacerbation
Chronic Diagnoses:�
Aortic stenosis status post recent aortic valve replacement 02/28/2024
History of aortic valve replacement 10 days prior to admission
Anemia likely postop, Hemoglobin stable at 10.4
History of depression/anxiety on citalopram
Gastroesophageal reflux disease
Hyperlipidemia
Essential hypertension
Consultations:�
None
Procedures:�
None
Clinical course:�
This is a 73-year-old female with past medical history as stated above, who presented with worsening cough and mild wheezing.
Problem 1:
Mild Cough likely due to COPD exacerbation.
Her Chest x-ray showed no acute cardiopulmonary process.
Her Procalcitonin was negative.
She received IV Decadron while in the hospital, and was discharged with oral prednisone 40 mg for 5 days.
She can continue with azithromycin for total 3 days.
Her walking pulse ox prior to admission did not show any need for home oxygen therapy following discharge.
Discharge Plan
-
Patient Disposition: Home (Routine Discharge)
Discharge Diagnosis/Procedures: COPD exacerbation ; recent aortic valve replacement
Condition: Good
Diet: As tolerated, Low Fat, Low Cholesterol and 2 Gram Sodium
Activity: As tolerated
Driving Restrictions: As prior to admission
Activity Restrictions/Additional Instructions:
Continue incentive spirometry at home
Referrals:
Shawanda Purcell NP [Family Provider] - in less than 1 week
Additional Discharge Medication Instructions: take Prednisone 40 mg daily x 5 days
take Azithromycin for 2 more days
Prescriptions:
New
prednisone 20 mg tablet
40 mg PO DAILY 5 Days Qty: 10 0RF
azithromycin 500 mg tablet
500 mg PO DAILY 2 Days Qty: 2 0RF
Continued
aspirin 81 MG tablet,delayed release (DR/EC)
81 mg PO QPM
simvastatin 20 MG tablet
20 mg PO QPM
rizatriptan 5 MG tablet
5 mg PO DAILYPRN PRN (Reason: MIGRAINES)
albuterol sulfate 90 mcg/actuation Hfa Aerosol Inhaler
1 puff INHALATION R Q4HPRN PRN (Reason: SOB)
fluticasone propion-salmeterol [Advair HFA] 115-21 mcg/actuation Hfa Aerosol Inhaler
2 puff INHALATION R BID
famotidine [Pepcid] 40 mg Tablet
40 mg PO QPM
cholecalciferol (vitamin D3) [Vitamin D3] 25 mcg (1,000 unit) Tablet
25 mcg PO QPM
escitalopram oxalate [Lexapro] 10 mg Tablet
15 mg PO DAILY
metoprolol succinate 25 mg Tablet Extended Release 24 Hr
12.5 mg PO DAILY Qty: 30 2RF
cyclobenzaprine 5 mg Tablet
5 mg PO TID
tramadol 50 mg tablet
25 mg PO Q6HPRN PRN (Reason: MODERATE pain)
gabapentin 300 mg capsule
300 mg PO TID
Discharge Orders:
Discharge Patient (As Directed); Ordered 03/10/24
Ordered By: Jody Prakash
Discharge Date and Time
Print Language: SINHALA
== END 2024-03-10 11:45 | disposition home or self-care (01) | DRG 192 ==
LOC: 4 EAST ACU 15:31
PROVIDERS: Physician Assistant; Registered Nurse; ADMITTING PHYSICIAN Internal Medicine; CONSULT PHYSICIAN Thoracic Surgery (Cardiothoracic Vascular Surgery); EMERGENCY PHYSICIAN Emergency Medicine; FAMILY PHYSICIAN Internal Medicine
DX: J44.1 Chronic obstructive pulmonary disease with (acute) exacerbation (principal); E78.5 Hyperlipidemia, unspecified; M81.0 Age-related osteoporosis without current pathological fracture; F41.9 Anxiety disorder, unspecified; D64.89 Other specified anemias; K21.9 Gastro-esophageal reflux disease without esophagitis; F32.A Depression, unspecified; Z87.891 Personal history of nicotine dependence; Z88.2 Allergy status to sulfonamides; Z95.2 Presence of prosthetic heart valve; Z79.82 Long term (current) use of aspirin; Z79.51 Long term (current) use of inhaled steroids; Z87.442 Personal history of urinary calculi; Z11.52 Encounter for screening for COVID-19
CPT/HCPCS: 71046; 80048; 80053; 83880; 84145; 85025; 85027; 87502; 87811; 93005; 94640; 94761

== ENCOUNTER 2024-04-09 08:30 | Outpatient (RCR) | payer MEDICARE, SELFPAY | END 2024-04-09 23:59 | disposition home or self-care (01) | LOC: CRHB 08:30 | PROVIDERS: ATTENDING PHYSICIAN Internal Medicine Cardiovascular Disease; FAMILY PHYSICIAN Internal Medicine | DX: Z95.2 Presence of prosthetic heart valve (principal) | CPT/HCPCS: G0422; G0423 ==

== ENCOUNTER 2024-05-09 16:30 | Outpatient (RCR) | payer MEDICARE, SELFPAY | END 2024-05-09 23:59 | disposition home or self-care (01) | LOC: CRHB 16:30 | PROVIDERS: ATTENDING PHYSICIAN Internal Medicine Cardiovascular Disease; FAMILY PHYSICIAN Internal Medicine | DX: Z95.2 Presence of prosthetic heart valve (principal) | CPT/HCPCS: G0422; G0423 ==

== ENCOUNTER 2024-05-20 12:41 | Emergency (ER) | payer MEDICARE, SELFPAY ==
[2024-05-20 12:43] VITALS: BP 147/90
[2024-05-20] MEDS: ADACEL 0.5 ML IM (14:32)
--- NOTE | 2024-05-20 19:44 | ED.SKININJ ---
HPI-Injury
General
Chief Complaint: Skin Surface Trauma
Source: patient
Exam Limitations: none
Time Seen by Provider: 05/20/24 13:54
Nursing documentation reviewed up to this point in time: agreed with
History of Present Illness-Injury
Is this injury a work related problem?: No
Is pt an associate of [facility]?: No
Initial Injury comments:
Patient to ED for eval of injury to left distal index finger. Cut finger on food grater. Unable to stop bleeding. Brought self to ED. Injury occurred just [employer]
Past History
Past History
ED Past Medical History: Other (Patient has a history of kidney stone )
ED Past Surgical History: Other (Patient has a history of lithotripsy )
Social History
Tobacco: Non-smoker
Alcohol: Occasional
Drug: None
Personal: Single
Living: alone
Employment: Employed
Review of Systems
Review of Systems
Allergies reviewed?: Yes
All Other Systems: ROS reviewed and negative except as documented in HPI and ROS
Constitutional: Reports no symptoms
Musculoskeletal: Reports no symptoms
Skin: Reports other (skin avulsion to left distal index finger)
Neurological: Reports no symptoms
Psychiatric: Reports no symptoms
Skin Exam
Avulsion
Left Distal Second Finger:
Type of avulsion injury: superfical
Any active bleeding?: low grade venous oozing
Distal skin color and temperature: normal-warm & good color
Normal distal neurovascular exam: Yes
Phy Exam
General Physical Exam
General Presentation: well appearing and no apparent distress
General age: appears stated age
General Skin: warm and dry
Musculoskeletal Exam
Musculoskeletal Exam: full ROM and neuro vasc intact
Skin Exam
Skin Exam: normal color, warm/dry, no rash and other (superficial avulsion to left distal index finger. Gelfoam applied, bleeding stopped. Dressing applied by RN, will discharge home, followup with PCP)
Psychiatric Exam
Psychiatric Exam: normal mood/affect
Course
Orders/Labs/Results
Orders:
Orders
05/20/24 14:20
Tetanus/Diphth/Acelpertussis [Adacel] 0.5 ml IM .ONCE ONE
Vital Signs
Initial and Last Documented VS:
Initial Vital Signs
Temp Pulse Resp BP Pulse Ox
98.0 F 96 16 147/90 97
05/20/24 12:43 05/20/24 12:43 05/20/24 12:43 05/20/24 12:43 05/20/24 12:43
Last Documented Vital Signs
Temp Pulse Resp BP Pulse Ox
98.0 F 96 16 147/90 97
05/20/24 12:43 05/20/24 12:43 05/20/24 12:43 05/20/24 12:43 05/20/24 12:43
*Critical Care Note
Total Time (30-74mins, 75-104mins- exclusive of procedures): Not Applicable
ED Attending Note
-
Portions of this chart may have been created with voice recognition software.� Occasional wrong word or��sound alike� substitutions may have occurred due to the inherent limitations of voice recognition software.
Discharge Plan
Departure
Patient Disposition: Home (Routine Discharge)
Date of Disposition: 05/20/24
Time of Disposition: 14:20
Patient with high blood pressure during this ER visit?: No
Condition: Good
Covid-19: Not Applicable
Discharge Problem:
Avulsion of skin of finger
Instructions: Gelfoam
Prescriptions:
No Action
aspirin 81 MG tablet,delayed release (DR/EC)
81 mg PO QPM
simvastatin 20 MG tablet
20 mg PO QPM
rizatriptan 5 MG tablet
5 mg PO DAILYPRN PRN (Reason: MIGRAINES)
albuterol sulfate 90 mcg/actuation Hfa Aerosol Inhaler
1 puff INHALATION R Q4HPRN PRN (Reason: SOB)
fluticasone propion-salmeterol [Advair HFA] 115-21 mcg/actuation Hfa Aerosol Inhaler
2 puff INHALATION R BID
famotidine [Pepcid] 40 mg Tablet
40 mg PO QPM
cholecalciferol (vitamin D3) [Vitamin D3] 25 mcg (1,000 unit) Tablet
25 mcg PO QPM
escitalopram oxalate [Lexapro] 10 mg Tablet
15 mg PO DAILY
metoprolol succinate 25 mg Tablet Extended Release 24 Hr
12.5 mg PO DAILY Qty: 30 2RF
cyclobenzaprine 5 mg Tablet
5 mg PO TID
tramadol 50 mg tablet
25 mg PO Q6HPRN PRN (Reason: MODERATE pain)
gabapentin 300 mg capsule
300 mg PO TID
prednisone 20 mg tablet
40 mg PO DAILY 5 Days Qty: 10 0RF
azithromycin 500 mg tablet
500 mg PO DAILY 2 Days Qty: 2 0RF
Referrals:
Shawanda Purcell NP [Family Provider] - Follow up in 2-3 days
Interventions
Interventions:
*Risk Screen - Suicide Last Done: 05/20/24 14:45
*General Assessment Last Done: 05/20/24 14:45
*Neglect/Abuse Screening Last Done: 05/20/24 14:45
ED- Fall Risk Assessment Last Done: 05/20/24 14:45
*ED COVID-19 Vaccine History Last Done: 05/20/24 14:45
*Nursing Disposition Last Done: 05/20/24 14:45
ED-Skin Assessment Last Done: 05/20/24 14:45
Discharge Date and Time
Discharge Date/Time: 05/20/24 14:45
Print Language: [id number]
== END 2024-05-20 14:45 | disposition home or self-care (01) ==
LOC: EMR 12:41
PROVIDERS: EMERGENCY PHYSICIAN Student in an Organized Health Care Education/Training Program; FAMILY PHYSICIAN Internal Medicine
DX: S61.211A Laceration without foreign body of left index finger without damage to nail, initial encounter (principal); W27.8XXA Contact with other nonpowered hand tool, initial encounter; Z23 Encounter for immunization
CPT/HCPCS: 99282; 90471; 90715

== ENCOUNTER 2024-05-30 15:12 | Outpatient (RCR) | payer MEDICARE, SELFPAY | END 2024-05-30 23:59 | disposition home or self-care (01) | LOC: CRHB 15:12 | PROVIDERS: ATTENDING PHYSICIAN Internal Medicine Cardiovascular Disease; FAMILY PHYSICIAN Internal Medicine | DX: Z95.2 Presence of prosthetic heart valve (principal) | CPT/HCPCS: 93798; G0422 ==

== ENCOUNTER 2024-07-09 15:26 | Outpatient (RCR) | payer MEDICARE, SELFPAY | END 2024-07-09 23:59 | disposition home or self-care (01) | LOC: CRHB 15:26 | PROVIDERS: ATTENDING PHYSICIAN Internal Medicine Cardiovascular Disease; FAMILY PHYSICIAN Internal Medicine | DX: Z95.2 Presence of prosthetic heart valve (principal) | CPT/HCPCS: G0422 ==

== ENCOUNTER 2024-08-01 15:24 | Outpatient (RCR) | payer MEDICARE, SELFPAY | END 2024-08-01 23:59 | disposition home or self-care (01) | LOC: CRHB 15:24 | PROVIDERS: ATTENDING PHYSICIAN Internal Medicine Cardiovascular Disease; FAMILY PHYSICIAN Internal Medicine | DX: Z95.2 Presence of prosthetic heart valve (principal) | CPT/HCPCS: G0422 ==

== ENCOUNTER → 2024-09-27 15:50 | Outpatient (REF) | payer MEDICARE, SELFPAY | LOC: RCS 15:50 | PROVIDERS: ATTENDING PHYSICIAN Thoracic Surgery (Cardiothoracic Vascular Surgery); FAMILY PHYSICIAN Internal Medicine | DX: Z95.2 Presence of prosthetic heart valve (principal) | CPT/HCPCS: 93306 ==

== ENCOUNTER → 2025-02-05 07:54 | Outpatient (REF) | payer MEDICARE, SELFPAY | LOC: HWRAD 07:54 | PROVIDERS: ATTENDING PHYSICIAN Internal Medicine Critical Care Medicine; FAMILY PHYSICIAN Internal Medicine | DX: R91.1 Solitary pulmonary nodule (principal) | CPT/HCPCS: 71250 ==

== ENCOUNTER → 2025-02-13 08:06 | Outpatient (REF) | payer MEDICARE, SELFPAY | LOC: RAD 08:06 | PROVIDERS: ATTENDING PHYSICIAN Internal Medicine | DX: M54.50 Low back pain, unspecified (principal) | CPT/HCPCS: 72110 ==

== ENCOUNTER → 2025-04-02 08:02 | Outpatient (REF) | payer MEDICARE, SELFPAY | LOC: HWWDC 08:02 | PROVIDERS: ATTENDING PHYSICIAN Internal Medicine; REFERRING PHYSICIAN Student in an Organized Health Care Education/Training Program | DX: Z78.0 Asymptomatic menopausal state (principal); Z12.31 Encounter for screening mammogram for malignant neoplasm of breast | CPT/HCPCS: 77063; 77067; 77080 ==

== ENCOUNTER → 2025-04-24 10:12 | Outpatient (REF) | payer MEDICARE, SELFPAY | LOC: HWRAD 10:12 | PROVIDERS: ATTENDING PHYSICIAN Internal Medicine | DX: M54.2 Cervicalgia (principal) | CPT/HCPCS: 72040 ==